=== PATIENT | male | born 1980 | race Caucasian/White ===

== ENCOUNTER 2023-10-09 08:54 | Outpatient (CLI) | payer BC, SELFPAY ==
--- NOTE | 2023-10-31 00:16 | WPDHOMESLEEP ---
Sleep Study - Home Unattended Date of Study: 10/09/23 Ordering Provider: KAREEM Jarrell Interpreting Provider: Cesia Bradford MD Home Sleep Study Type: Watch PAT Height: 1.8 m Weight: 83.461 kg Body Mass Index: 25.7 Neck Circumference (inches): 15 [place]: 5 Reason for Sleep Study loud snoring Sleep History Hal Rust is a 43-year-old man with excessively loud snoring that disturbs his . He feels tired after an average night of sleep. He rarely awakens from sleep feeling short of breath. He frequently wakes at night with heartburn, belching or coughing.??He constantly snores and is always loud enough to disturb others. He frequently has trouble sleeping when he has a cold. He rarely wakes up gasping for breath during the night. He frequently has breathing problems at night. He frequently sweats excessively at night. He never notices his heart pounding or beating irregularly during the night. He rarely falls asleep during the day, however he does take naps. He rarely falls asleep involuntarily, never falls asleep while driving. He never experiences loss of muscle tone with strong emotion. He rarely has daytime difficulty at work due to excessive sleepiness. He rarely feels paralyzed on waking or falling asleep. He rarely experiences vivid dreams upon waking or falling asleep. He never feels afraid of going to sleep. He he occasionally has nightmares. He frequently remembers his dreams. He constantly has racing thoughts. He rarely feels sad or depressed. He occasionally has anxiety. He occasionally notices parts of his body jerking. He constantly kicks at night. He rarely has crawling or aching feelings in his legs. He rarely has any kind of leg pain at night. He does not have any morning jaw pain. He occasionally grinds his teeth during sleep. He occasionally is bothered by pain during the day. He rarely is awakened by pain at night. He occasionally wakes up feeling stiff in the morning. He rarely wakes up with sore achy muscles. He rarely wakes up with pain in the neck and spine. He has memory problems and he takes antacids regularly. He indicates that he drinks alcohol heavily. He has had no significant change in his weight during the last year. Normal bedtime is Around 9:00 p.m., sometimes falling asleep instantly and sometimes it may take a little longer. He wakes up maybe once at night, at most 2 or 3 times to go to the bathroom and then immediately goes back to bed. He is able to return to sleep within 2-5 minutes. He wakes in the morning between 4 and 4:30 a.m.. On weekends, his schedule is different, going to bed between midnight and 2:00 a.m.. On weekends he wakes around 10:00 a.m.. He estimates getting 8 hours of sleep normally. He takes naps only on days off. Sometimes, a short nap lasting 10-15 minutes may be refreshing. He is usually drowsy for 1/2 hour after waking. He feels better in the afternoon or evening compared to earlier in the day. Habits:??Tobacco: 1 pack per day Caffeine: 1 cup of large tea throughout the day. Alcohol: several per day, more on the weekends Recreational substances: a little THC in the evening PMFSH Past Medical History Medical History (Updated 10/31/23 @ 00:29 by Cesia Bradford MD) GERD (gastroesophageal reflux disease) Rhinitis Surgical History Surgical History (Updated 09/22/23 @ 13:42 by Jeronimo Hardy MA) H/O vasectomy History of tonsillectomy Social History Social History (Updated 10/31/23 @ 00:25 by Cesia Bradford MD) Smoking packs per day: 1 Smoking cigarettes per day: 20.0 Years smoked: 20 Smoking pack-years: 20.00 Smoking status: Current every day smoker Alcohol intake: current Living arrangements: with family Medications Home Medications Medication Instructions Recorded Confirmed Type No Home Medications 09/22/23 09/22/23 History Sleep Procedure The sleep study was completed usin
[2023-10-31 00:28] VITALS: BMI 25.7
== END 2023-10-10 07:30 | disposition home or self-care (01) ==
PROVIDERS: Visit Provider Physician Assistant
DX: G47.10 Hypersomnia, unspecified (principal); Z87.891 Personal history of nicotine dependence; G47.33 Obstructive sleep apnea (adult) (pediatric)
CPT/HCPCS: 95800

== ENCOUNTER 2024-09-13 02:16 | Day surgery (SDC) | payer BC, SELFPAY ==
[2024-09-02 14:37] VITALS: BMI 25.1
--- OUTSIDE RECORDS SUMMARY | 2024-09-13 02:19 | XMS_ITS | Clinical Summary ---
Author Organization [facility] Address [address] [place] [address] Care Team Providers Care Egg Gatherer Name Role Phone So Leonard NP Primary Care Provider Allergies No known active allergies Medications No known medications Active Problems Problem Noted Date Diagnosed Date Heartburn 11/29/2021 Surgical History Surgery Date Site/Laterality Comments WISDOM TOOTH EXTRACTION TONSILECTOMY, ADENOIDECTOMY, BILATERAL MYRINGOTOMY AND TUBES Family History Medical History Relation Name Comments Arthritis Father Arthritis Mother Hyperlipidemia Mother Relation Name Status Comments Father Mother Social History Tobacco Use Types Packs/Day Years Used Date Smoking Tobacco: Every Day Cigarettes Personal Safety Answer Date Recorded Getting School Help Needed Not on file 10/08 Sex and Gender Information Value Date Recorded Sex Assigned at Not on file 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 Gender Identity Not on file Sexual Orientation Not on file Obstetrics History Last Filed Vital Signs Vital Sign Reading Time Taken Comments Blood Pressure - - Pulse - - Temperature - - Respiratory Rate - - Oxygen Saturation - - Inhaled Oxygen Concentration - - Weight 83.9 kg (185 lb) 11/29/2021 9:26 AM CDT Height 177.8 cm (5' 10 ) 11/29/2021 9:26 AM CDT Body Mass Index 26.54 11/29/2021 9:26 AM CDT Plan of Treatment Health Maintenance Due Date Last Done Comments Depression Screening 1981 Hepatitis C Screening 1981 Pneumococcal vaccine <65 (1 of 2 - PCV) 1987 DTaP/Tdap/Td Vaccine (1 - Tdap) 1992 Varicella Vaccines (1 of 2 - 13+ 2-dose series) 1994 Hepatitis B Screening 1999 Regular Well Visit/Exam 18-64 1999 Influenza Vaccine (#1) 2024 HPV Vaccines Aged Out No longer eligi ble based on patient's age to complete this topic Insurance [employer] Care Teams Egg Gatherer Relationship Specialty Start Date End Date So Leonard NP [address] [place] [address] PCP - General Nurse Practitioner 11/08/21
--- OUTSIDE RECORDS SUMMARY | 2024-09-13 02:19 | XMS_ITS | Referral Summary ---
Author Organization [facility] Address [address] [place] [address] Care Team Providers Care Director Of Institutional Research Name Role Phone So Leonard NP Primary Care Provider [phone] Allergies No known active allergies Medications No known medications Active Problems Problem Noted Date Diagnosed Date Heartburn 11/29/2021 Social History Tobacco Use Types Packs/Day Years Used Date Smoking Tobacco: Every Day Cigarettes Personal Safety Answer Date Recorded Getting School Help Needed Not on file 10/08 Sex and Gender Information Value Date Recorded Sex Assigned at Not on file 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 Gender Identity Not on file Sexual Orientation Not on file Last Filed Vital Signs Vital Sign Reading Time Taken Comments Blood Pressure - - Pulse - - Temperature - - Respiratory Rate - - Oxygen Saturation - - Inhaled Oxygen Concentration - - Weight 83.9 kg (185 lb) 11/29/2021 9:26 AM CDT Height 177.8 cm (5' 10 ) 11/29/2021 9:26 AM CDT Body Mass Index 26.54 11/29/2021 9:26 AM CDT Plan of Treatment Not on file Insurance [employer] Care Teams Director Of Institutional Research Relationship Specialty Start Date End Date Horacio, So Ramos NP [address] [place] [address] PCP - General Nurse Practitioner 11/08/21
--- OUTSIDE RECORDS SUMMARY | 2024-09-13 02:19 | XMS_ITS | Clinical Summary ---
Author Organization [facility] Address [address] [address] Phone Care Team Providers Care Hand Cloth Cutter Name Role Phone Unavailable Primary Care Provider Unavailabl e Social History Tobacco Use Types Packs/Day Years Used Date Smoking Tobacco: Never Assessed Sex and Gender Information Value Date Recorded Sex Assigned at Not on file Legal Sex Male 12:06 AM CDT Gender Identity Not on file Sexual Orientation Not on file Plan of Treatment Health Maintenance Due Date Last Done Comments Hepatitis C Virus (HCV) Screening 1981 TdaP Immunization 1981 Hepatitis B Immunization (1 of 3 - 19+ 3-dose series) 2000 Influenza Immunization (#1) 2024 SARS-COV-2 Immunization ( - 2023- season) 2024 Respiratory Syncytial Virus (RSV) Immunization (Adult) (1 - 1-dose 75+ series) 2056 Meningococcal Immunization (ACWY) Aged Out No longer eligible based on patient's age to complete this topic Pneumococcal Immunization Combined Aged Out No longer eligible based on patient's age to complete this topic Rotavirus Immunization Aged Out No lo nger eligible based on patient's age to complete this topic
--- OUTSIDE RECORDS SUMMARY | 2024-09-13 02:19 | XMS_ITS | Data Portability ---
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 15:37:36 Date Recorded Respiratory rate Provider Name a nd Address Organization Details Last Updated DateTime 03/12/2024 16 /min Joanne FalconGARO [place] [facility] 03/12/2024 15:37:39 Date Recorded Body temperature Provider Name a nd Address Organization Details Last Updated DateTime 03/12/2024 97.5 [degF] JoanneGARO [place] - [facility] 03/12/2024 15:42:26 Date Recorded Heart rate Provider Name an d Address Organization Details Last Updated DateTime 03/12/2024 98 /min Joanne FinnGARO [place] - [facility] 2023 15:42:35 Date Recorded Systolic blood pressure Diastolic blood pressure Provider Name and Address Organization Details Last Updated DateTime 01/29/2021 140 mm[Hg] 80 mm[Hg] Aiden Wilkins [place] [facility] 01/29/2021 15:20:44 Date Recorded Systolic blood pressure Diastolic blood pressure Provider Name and Address Organization Details Last Updated DateTime 01/29/2021 132 mm[Hg] 78 mm[Hg] So Garcia APN, FNP-C Attn: Accounting,[address] [facility], [place], [address], [place] 01/29/2021 15:40:34 Date Recorded Systolic blood pressure Diastolic blood pressure Provider Name and Address Organization Details Last Updated DateTime 09/22/2022 136 mm[Hg] 90 mm[Hg] Joanne Finn [facility] 04/2023 10:30:38 Date Recorded Systolic blood pressure Diastolic blood pressure Provider Name and Address Organization Details Last Updated DateTime 10/25/2022 130 mm[Hg] 90 mm[Hg] Joanne Finn [place] - [facility] 10/12 15:47:21 Date Recorded Systolic blood pressure Diastolic blood pressure Provider Name and Address Organization Details Last Updated DateTime 03/12/2024 164 mm[Hg] 98 mm[Hg] Joanne Finn [facility] - [facility] 03/12/2024 15:42:32 Date Recorded Systolic blood pressure Diastolic blood pressure Provider Name and Address Organization Details Last Updated DateTime 03/12/2024 142 mm[Hg] 88 mm[Hg] So Garcia APN, FNP-C Attn: Accounting[address] [place], [address], [facility] 03/12/2024 16:03:13 Social History Question Answer Notes LastModified by Organization Details LastModified Time Tobacco Smoking Status Current Every Day Smoker Heidi graham, [facility] 10/17/2016 14:03:08 Do You Have An Advance Directive? No Information not available 12/19/2018 What Is Your Level Of Alcohol Consumption? Heavy Couple Drinks A Night Information not available 03/12/2024 Are You Blind Or Do You Have Difficulty Seeing? No Information not available 01/29/2021 What Is Your Level Of Caffeine Consumption? Moderate Tea, Cinnamin Water Information not available 10/25/2022 How Much Tobacco Do You Chew? None Information not available 10/17/2016 In The 14 Days Before Symptom Onset, Have You Had Close Contact With A Laboratory-confi rmed COVID-19 While That Case Was Ill? No Information not available 07/28/2020 In The 14 Days Before Symptom Onset, Have You Had Close Contact With A Person Who Is Under Investigation For COVID-19 While That Person Was Ill? No Information not available 07/28/2020 Have You Been To An Area Known To Be High Risk For COVID-19? No Information not available 07/28/2020 Are You Currently Employed? Yes Information not available 01/29/2021 Are You Deaf Or Do You Have Serious Difficulty Hearing? No Information not available 01/29/2021 What Type Of Diet Are You Following? REGULAR Information not available 10/17/2016 Which Illicit Or Recreational Drugs Have You Used? None Information not available 10/17/2016 Do You Or Have You Ever Used E-cigarettes Or Vape? Never Used Electronic Cigarettes Information not available 07/28/2020 Education 12 Some College Information not available 12/19/2018 What Is Your Occupation? [employer] Information not available 03/12/2024 Are There Any Guns Present In Your Home? Yes Information not available 12/19/2018 Hard Of Hearing Or Deaf In One Or Both Ears? No Information not available 10/17/2016 Legally Blind In One Or Both Eyes? No Information not available 10/17/2016 Marital Status Informatio n not available 12/19/2018 What Was The Date Of Your Most Recent Tobacco Screening? 03/12/2024 Information not available 03/12/2024 How Many Children Do You Have? 2 Information not available 01/29/2021 What Is Your Relationship Status? Information not available 01/29/2021 Do You Use Your Seat Belt Or Car Seat Routinely? No Information not available 01/29/2021 Seat Belts Used Routinely Yes Information not available 12/19/2018 Smoke Alarm In Home Yes Information not available 12/19/2018 Do You Have Smoke And Carbon Monoxide Detectors In Your Home? Yes Information not available 01/29/2021 At What Age Did You Start Smoking Tobacco? 16 Information not available 10/17/2016 Are You Passively Exposed To Smoke? Yes Information not available 01/29/2021 Do You Or Have You Ever Used Smokeless Tobacco? Never Used Smokeless Tobacco Information not available 07/28/2020 How Much Tobacco Do You Smoke? 0.5 PPD Information not available 07/28/2020 General Stress Level Medium Information not available 05/10/2017 Do You Feel Stressed (tense, Restless, Nervous, Or Anxious, Or Unable To Sleep At Night)? [id number] Information not available 01/29/2021 Do You Use Any Illicit Or Recreational Drugs? Yes Occassional Marjiuanna [email or web address] Information not available 09/22/2022 Do You Use Sunscreen Routinely? No Information not available 12/19/2018 Has Tobacco Cessation Counseling Been Provided? Yes [email or web address] Information not available 10/25/2022 On What Date Was Tobacco Cessation Counseling Provided? 03/12/2024 Information not available 03/12/2024 How Many Years Have You Smoked Tobacco? 27 03/12/24 Information not available 03/12/2024 Do You Or Have You Ever Used Any Other Forms Of Tobacco Or Nicotine? No Information not available 01/29/2021 Sex: Male Functional Status Question Answer Note LastModified by Organizat ion Details LastModified Time Are you able to care for yourself? Yes Information not available 01/29/2021 What is your exercise level? Occasional Information not available 09/22/2022 Mental Status None recorded. Family History Relationship Description Onset Age of this Age Resolved Age Notes LastModified by Organization Details LastModified Time Brother Attention deficit hyperactivit y disorder Not available 10/17 14:02:50 Brother Hypertensive disorder Not available 2016 14:03:01 Mother Hypertensive disorder Not available 2016 14:03:01 Medical History Condition Response Coronary Artery Disease N Other N High Blood Pressure N Atrial Fibrillation N Thyroid Problems N Kidney or Bladder Problems N GI Problems N Depression N COPD N Blood Clots N Skin Problems N Anemia N Heart Attack (ME) N Diabetes N Anxiety Disorder N Muscle, Joint, or Bone Problems N Seizures/Epilepsy N Acid Reflux (GERD) N Cancer N Stroke N Asthma N Allergies N High Cholesterol N Hepatitis N Liver Disease N Headaches N Osteoporosis N Heart Failure N Past Encounters Encounter ID Performer Location Encounter Start Date Encounter Closed Date Diagnosis/Indication Diagnosis SNOMED-CT Code Diagnosis ICD10 Code Diagnosis Note [id number] So Garcia APN, FNP-C [facility] (Adult Med) [address] [place] [address] 10/17/2016 13:53:57 10/17/2016 15:53:26 Screening for disorder 496901960 Z13.9 Adult [facility] th examination 810338205 Z00.00 well exam and lab work to be done yearly, healthy diet advised Tobacco de pendence syndrome 61538664 F17.290 Smoking cessation encouraged . Bilateral wrist pain 404 6834888 9901015 M25.531 M25.532 OTC aleve or ibuprofen or tylenol as needed, Cyst of scalp 889239241 L72.9 derm referral [id number] So Garcia APN, FNP-C [facility] (Adult Med) [address] [place] [address] 10/24/2016 16:33:51 10/25/2016 09:24:45 Bilateral wrist pain 8589269191 1849242 M25.531 M25.532 OTC aleve or ibuprofen or tylenol as needed, Tobacco de pendence syndrome 75729039 F17.290 Smoking cessation encouraged . Cyst of scalp 317178136 L72.9 derm referral made, f/u with specialist , no c/o pain or drainage [id number] [facility] (Adult Med) [address] [place] [address] 02/16/2017 08:37:41 02/16/2017 15:25:04 Partial thickness burn of hand 28031995 T23.202A 1st to 2nd degree burn w/ blistering causing increased pain. Pt given Motrin 2 tabs prior to procedure. He can continue PRN Tylenol #3 and ibuprofen for pain at home. Cont. silvadene BID until blisters healed. No infection noted, but abx given to prevent infection since he works with his hands in a [employer]. Keep hand covered. f/u with PCP in one week to monitor healing. [id number] So Garcia APN, FNP-C [facility] (Adult Med) [address] [place] [address] 02/22/2017 16:08:17 02/28/2017 10:06:37 Partial thickness burn of hand 90881071 T23.202A 1st to 2nd degree burn w/ blistering ; abx given to prevent infection nad has a few days left.-no s/s infection, cont silvadene until finished with PO abx then may switch to mupirocin until wound healed. Keep blisters clean and covered, especially while at work. RTO if any fever or odor or redness. [id number] So Garcia APN, FNP-C [facility] (Adult [facility]) [address] [place] [address] 05/10/2017 16:17:11 05/11/2017 14:19:06 Increased frequency of urination 691288151 R35.0 urine dip wnl, send for c/s and await results for plan, also ordered psa. consider urology referral. possible bph Constipation 60865460 K5 9.00 start 17 g miralax qd until stool soft and formed; increase fiber and water intake during the day, decrease in evening Excessive thirst 2318841 7 R63.1 cont to drink 6-8 bottles a day, may add sports drink when hot outside/in side warehouse. Venereal d isease screening 559455598 Z11.3 pt requests lab work. [id number] So Garcia APN, FNP-C [facility] (Adult Med) [address] [place] [address] 05/17/2017 16:25:45 05/17/2017 17:58:41 Increased frequency of urination 908963053 R35.0 Pt declined referral to urology at this time. [id number] So Garcia APN, FNP-C [facility] (Adult Med) [address] [place] [address] 11/20/2017 15:35:52 11/21/2017 08:32:14 Tobacco dependence syndrome 72020047 F17.290 Smoking cessation encouraged . Adult [facility] th examination 724102729 Z00.00 well exam and lab work to be done yearly, healthy diet advised Body mass index 25-29 - overweight 444740608 Z68.25 bmi 25.2 Exposure t o sexually transmissible disorder 737510187 Z20.2 pt requests lab work. was exposed recently, no symptoms Anxiety 89197877 F41.9 possibly being willing to start medication , smoking MJ daily. Lexapro handout provided from [facility] Cyst of scalp 666922360 L72.9 derm referral made, f/u with specialist , no c/o pain or drainage [id number] So Garcia APN, EM[facility]ates (Adult Med) [address] [place] [address] 05/22/2018 16:17:43 05/22/2018 17:35:37 Body mass index 25-29 - overweight 442950442 Z68.25 bmi 25.2 Anxiety 13868423 F41.9 possibly willing to start medication , smoking MJ daily but less; Tobacco de pendence syndrome 64412225 F17.290 Smoking cessation encouraged . Exposure t o sexually transmissible disorder 671114088 Z20.2 pt requests lab work. was exposed recently, no symptoms Cyst of scalp 871045239 L72.9 derm referral made, f/u with specialist , no c/o pain or drainage Prehypertension 86758493 9 R03.0 low salt diet advised Herpes simplex 17812155 B00.9 valtrex and Denavir requested for HSV outbreaks [id number] So Garcia APN, [facility] (Adult Med) [address] [place] [address] 09/18/2018 09:03:41 09/19/2018 09:22:46 Influenza-like symptoms 833146348 R68.89 rapid flu negative, dwp keeping hydrated, RTO if symptoms worsen Viral gastroenteritis 11 5393070 A08.4 Increase clear fluids. BRAT (bananas, rice, applesauce , toast) diet. If pain increases or if fever, go to ER. May need to f/u with GI if persists mcc. Keep log of foods/symp toms. Acute otitis media 34572 03 H65.02 left TM's with erythema and purulent middle ear fluid, start amoxicilli n 500 mg capsule, take 1 three times a day for 7 days, may increase probiotics in between times. Try foods such as yogurt and naturally fermented veggies and drinks like kefir and kombucha. [id number] So Garcia APN, FNP-C [facility] (Adult [facility]) [address] [place] [address] 12/19/2018 14:06:06 12/20/2018 08:56:07 Pain in elbow 14369893 M25.522 dwp trauma with delayed healing? possible soft tissue injury, firm mass palpated, will send for xr and possibly US, may still need ortho referral, dwp NSAID use Elevated blood-pressure reading without diagnosis of hypertension 880478259 R03.0 BP in hypertensi ve range, dwp risk, reducing salt and increasing exercise Tobacco user 594658853 Z 72.0 Smoking cessation encouraged . [id number] So Garcia APN, FNP-C [facility] (Adult Med) [address] [place] [address] 07/28/2020 08:35:43 07/29/2020 04:28:28 Prehypertension 395760564 R03.0 low salt diet advised Anxiety 21394605 F41.9 no meds at this time, smoking MJ daily but less; Tobacco de pendence syndrome 80607069 F17.290 Smoking cessation encouraged . Herpes simplex 77406274 B00.9 valtrex requested for HSV outbreaksD enavir also used in past [id number] So Garcai APN, FNP-C [facility] (Adult [facility]) [address] [address] 01/29/2021 14:50:09 02/02/2021 09:29:33 Anxiety 25150339 F41.9 possibly willing to start medication , smoking MJ daily but less; Tobacco de pendence syndrome 53958577 F17.290 Smoking cessation encouraged . Prehypertension 21071302 9 R03.0 low salt diet advised Body mass index 25-29 - overweight 714899730 Z68.25 bmi 25.2 Exposure t o sexually transmissible disorder 731473937 Z20.2 pt requests lab work. was exposed recently, no symptoms Herpes simplex 88307332 B00.9 valtrex and Denavir requested for HSV outbreaks Adult [facility] th examination 676327889 Z00.01 well exam and lab work to be done yearly, healthy diet advised Vasectomy requested 9 08381 Z30.2 [id number] So Garcia APN, FNP-C [facility] (Adult Med) [address] [place] [address] 09/22/2022 10:19:25 09/26/2022 10:44:16 Injury of finger 94997080 S69.92XA left middle finger, possible fx, pt declines xray, will splint in office Elevated blood-pressure reading without diagnosis of hypertension 968099310 R03.0 BP in pre-hypert ensive range, dwp risk, reducing salt and increasing exercise [id number] So Garcia APN, FNP-C [facility] (Adult [facility]) [address] [place] [address] 10/25/2022 15:33:00 11/01/2022 13:56:03 Adult health examination 485544565 Z00.01 well exam and lab work to be done yearly, healthy diet advised Body mass index 25-29 - overweight 037527396 Z68.25 bmi 25.1 Tobacco de pendence syndrome 13179806 F17.290 Smoking cessation encouraged . Anxiety 31099734 F41.9 possibly willing to start medication , smoking MJ daily but less; Prehypertension 06219895 9 R03.0 low salt diet advised Exposure t o sexually transmissible disorder 098106732 Z20.2 pt requests lab work. was exposed recently, no symptoms Herpes simplex 78571937 B00.9 valtrex and Denavir requested for HSV outbreaks, ok to call for refill [id number] So Garcia APN, FNP-C [facility] ([facility]ult [facility]) [address] [place] [address] 03/12/2024 15:29:38 03/15/2024 11:56:00 Adult health examination 028698104 Z00.01 well exam and lab work to be done yearly, healthy diet advised Tobacco de pendence syndrome 55482832 F17.290 Smoking cessation encouraged . Herpes simplex 22950955 B00.9 valtrex and Denavir requested for HSV outbreaks, ok to call for refill Body mass index 25-29 - overweight 545225778 Z68.25 bmi 25.4 Exposure t o sexually transmissible disorder 050954754 Z20.2 pt requests lab work. was not exposed recently, no symptomsco nsent discussed Prehypertension 99162746 9 R03.0 BP in pre-hypert ensive range, dwp risk, reducing salt and increasing exercise Hemorrhoids 81376371 K64 .9 has tried otc options, minimally helping, pt plans to see rectal surgeon after the end of the year when he has more PTOdoes not need referral, just letting us know Positive s creening for depression on PHQ-9 (Patient Health Questionnaire 9) 9252562904 09600 Z13.31 depression screening positive-r epeat at followuppt states he just doesn't like having to be an adult and have a job and responsibi lities, looking forward to his upcoming vacation, does not want med or referrals Health Concerns Section Related Observation LastModified by Organization Detai ls LastModified Time None Recorded Concern Status LastModified by Organization Details LastModified Time None Recorded Advance Directives Directive N: Payers Encounter Date Sequence Insurance Name Policy Number Policy Obrien Covered Member ID Obrien Member ID Guarantor Name 07/28/2020 1 [facility] [id number] Hal Rust [id number] Hal Rust 01/29/2021 1 [facility] [id number] Hal Rust [id number] Hal Rust 09/22/2022 1 [employer] [id number] Hal Rust [id number] Hal Rust 10/25/2022 1 [place] [id number] Hal Rust [id number] Hal Rust 03/12/2024 1 [place] [id number] Hal Rust [id number] Hal Rust Notes Date Note Type Note Provider Name and Address Organization Details Recorded Time 07/28/2020 text/html 07/28/20: no new symptoms, needing follow up; does not want labs at this time; no new symptoms; just needs refill of medication for herpes outbreaks 05/22/18: no symptoms, just here for f/u/preventative visit; would like std screening, exposed, still would like new derm to have cyst removed from forehead; coping better with anxiety and is smoking MJ daily to cope but is only smoking 1-2 times a day 11/20/17: no symptoms, just here for f/u/preventative visit; would like std screening, was exposed recently, still would like new derm to go to; also has increased anxiety and is smoking MJ daily to cope, would like to consider medication because he is considering a new job but is not ready yet. 05/17/17: still feeling symptoms with frequent urination, constipation better; now has shoulder pain in right side when he turns his neck and if he coughs too hard but can't recreate the pain today;Denies fever, chest pain, SOB, n/v/d, dizziness or headaches.05/10/17: Having constipation in the last two weeks; not regular BM, used to go twice a day but has not had a good movement since. Taking Colace. No blood in stool, no n/v/d. Drinking 6-8 water bottles a day. Urinating a lot and feels like he still isn't drinking enough most days. Also drinks a large amount of etoh on weekends and thinks that maybe that is the issue.States he has no discharge and no other issues related to his manhood but also requests an std check, declined hiv screening. So Garcia APN, SECURITIES TELLER-C Attn: Accounting[address] [place], [address], [facility] 07/28/2020 11:24:50 01/29/2021 text/html 01/29/21: no symptoms, just here for f/u/preventative visit; would like std screening, exposed, coping better with anxiety and is smoking MJ daily to cope but is only smoking 1-2 times a day 05/22/18: no symptoms, just here for f/u/preventative visit; would like std screening, exposed, still would like new derm to have cyst removed from forehead; coping better with anxiety and is smoking MJ daily to cope but is only smoking 1-2 times a day 11/20/17: no symptoms, just here for f/u/preventative visit; would like std screening, was exposed recently, still would like new derm to go to; also has increased anxiety and is smoking MJ daily to cope, would like to consider medication because he is considering a new job but is not ready yet. 05/17/17: still feeling symptoms with frequent urination, constipation better; now has shoulder pain in right side when he turns his neck and if he coughs too hard but can't recreate the pain today;Denies fever, chest pain, SOB, n/v/d, dizziness or headaches.05/10/17: Having constipation in the last two weeks; not regular BM, used to go twice a day but has not had a good movement since. Taking Colace. No blood in stool, no n/v/d. Drinking 6-8 water bottles a day. Urinating a lot and feels like he still isn't drinking enough most days. Also drinks a large amount of etoh on weekends and thinks that maybe that is the issue.States he has no discharge and no other issues related to his manhood but also requests an std check, declined hiv screening. So Garcia APN, FNP-C Attn: Accounting[address] [place], [address], [facility] 01/29/2021 15:55:00 09/22/2022 text/html yesterday hit hi s left middle finger pain and swollen. smashed it cutting smalls. taking tylenol; RICE and painful to move So Garcia APN, FNP-C Attn: Accounting[address] [place], [address], [facility] 09/22/2022 10:44:36 10/25/2022 text/html no symptoms, jus t here for f/u/preventative visit and std screening, not recently exposed but would like labs with any future lab draw did get vasectomy done, did not go back for sperm count testing So Garcia APN, FNP-C Attn: [address] [place], [address], [facility] 10/25/2022 17:51:49 03/12/2024 text/html no symptoms, jus t here for f/u/preventative visit and std screening, not recently exposed but would like labs with any future lab draw pt c/o hemorrhoids- tried Prep H but they keep coming back So Garcia APN, SECURITIES TELLER-C Attn: [address]ing[address] [facility], [place], [address], [place] [facility] 03/12/2024 16:05:44
[2024-09-13 11:56] VITALS: BP 163/99; PULSE 92; RESP 20; TEMP 36.6; O2SAT 100
[2024-09-13] MEDS: LACTATED RINGERS 1,000 ML 150 ML IV CONT (12:05)
--- NOTE | 2024-09-13 12:09 | P.HP_ITS ---
H&P: HPI History of Present Illness Date/Time: 09/13/24 12:09 Chief Complaint: Rectal bleed Narrative: the patient was in his usual state of health until May and June of 2024 when he had almost daily episodes of rectal bleeding. This is not associated with abdominal pain, unintentional weight loss, tenesmus or urgency. He has not been experiencing more bleeding episodes since June. He is here for colonoscopy. Review of Systems Review of Systems: All systems reviewed & are unremarkable except as noted in HPI and below PMFSH Past Medical History Medical History Anxiety GERD (gastroesophageal reflux disease) Rhinitis Surgical History Surgical History H/O vasectomy History of tonsillectomy Social History Social History Smoking packs per day: 1 Smoking cigarettes per day: 20.0 Years smoked: 25 Smoking pack-years: 25.00 Smoking status: Current every day smoker Tobacco type: cigarettes Alcohol intake: current Alcohol use details: 2-6 a night, 30 a weekend on average Substance use: current Substance use type: marijuana Other substance usage details: smokes weed in the evening daily Living arrangements: with family Spiritual care concerns: No Meds Home Medications and Allergies Home Medications ?Medication ?Instructions ?Recorded ?Confirmed ?Type famotidine 20 mg tablet (Acid 20 mg PO DAILY GERD 09/02/24 09/13/24 History Controller) Allergies Allergy/AdvReac Type Severity Reaction Status Date / Time Penicillins Allergy Rash Verified 09/13/24 11:54 Vital Signs Vital Signs - 24 hr 09/13/24 11:56 Temperature 97.9 F Pulse Rate 92 Respiratory Rate 20 Blood Pressure 163/99 H Pulse Oximetry 100 Oxygen Delivery Room Air Exam Const: General: cooperative and healthy appearing Resp: Effort & Inspection: normal respiratory effort and able to speak in complete sentences Auscultation: clear to auscultation bilaterally Cardio: Rate: regular rate Rhythm: regular rhythm GI: Inspection: normal to inspection GI Palp: No No hepatosplenomegaly present Auscultation: normal bowel sounds Rectal Exam: deferred Skin: General skin exam: normal color Psych: Appearance: grossly normal Mental Status: mental status grossly n ormal Assessment and Plan Assessment and plan (1) Bright red rectal bleeding: Code(s): K62.5 - Hemorrhage of anus and rectum Status: Acute Assessment and Plan: The patient is deemed a good candidate for the procedure. Consent signed. Will proceed.
--- NOTE | 2024-09-13 12:12 | P.PNAN_ITS ---
Anes - Initial Pre Proc Eval Procedure: Operation Date: 09/13/24 13:00 Proposed Procedures p Colonoscopy - Tod Renae MD Date/Time: 09/13/24 12:12 Surgeon: Tod Renae MD Pre Op Diagnosis: Hemorrhage of anus and rectum Patient Data Age: 44 Gender: M Height: 1.83 m Weight: 82.9 kg Last Vital Signs Temp 36.6 C 09/13/24 11:56 Pulse 92 09/13/24 11:56 Resp 20 09/13/24 11:56 BP 163/99 H 09/13/24 11:56 Pulse Ox 100 09/13/24 11:56 O2 Del Method Room Air 09/13/24 11:56 Allergies Allergy/AdvReac Type Severity Reaction Status Date / Time Penicillins Allergy Rash Verified 09/13/24 11:54 Home Medications ?Medication ?Instructions ?Recorded ?Confirmed ?Type famotidine 20 mg tablet (Acid 20 mg PO DAILY GERD 09/02/24 09/13/24 History Controller) Patient hx anesthesia problems: none Family hx anesthesia problems: none Results Review: All pre-operative results and documents have been reviewed as part of the pre- operative evaluation. [facility] Past Medical History Medical History Anxiety Rhinitis GERD (gastroesophageal reflux disease) Surgical History Surgical History H/O vasectomy History of tonsillectomy Social History Social History Smoking packs per day: 1 Smoking cigarettes per day: 20.0 Years smoked: 25 Smoking pack-years: 25.00 Smoking status: Current every day smoker Tobacco type: cigarettes Alcohol intake: current Alcohol use details: 2-6 a night, 30 a weekend on average Substance use: current Substance use type: marijuana Other substance usage details: smokes weed in the evening daily Living arrangements: with family Spiritual care concerns: No Anes - Eval Final PreProcedure Day of Procedure 09/13/24 12:12 Patient weight: normal Heart: regular rate and rhythm Lungs: decreased breath sounds Airway: Mallampati scale class II Neurological: alert and oriented Last oral intake: >/= 8 hours ASA classification: III Emergent: no Anesthetic plan: proceed Anesthesia type and monitoring: general GIVS and standard monitoring Results Review: All pre-operative results and documents have been reviewed as part of the pre- operative evaluation. Informed Consent: The patient's anesthetic plan and its attendant risks and benefits were discussed with the patient/family/POA. Questions were solicited and answers pr ovided to the satisfaction of the patient/family/POA.
[2024-09-13 13:05] VITALS: BP 133/95; PULSE 85; RESP 19; O2SAT 100
[2024-09-13 13:15] VITALS: BP 137/99; PULSE 79; RESP 13; O2SAT 100
[2024-09-13 13:25] VITALS: BP 149/102; PULSE 75; RESP 13; O2SAT 100
== END 2024-09-13 13:42 | disposition home or self-care (01) ==
PROVIDERS: PCP Nurse Practitioner Family; Visit Provider Internal Medicine Gastroenterology
PROC: 0DJD8ZZ Inspection of Lower Intestinal Tract, Via Natural or Artificial Opening Endoscopic (ICD-10-PCS; CPT 45378; principal; 2024-09-13 13:00)
DX: K63.5 Polyp of colon (principal); K51.40 Inflammatory polyps of colon without complications; K64.8 Other hemorrhoids; K21.9 Gastro-esophageal reflux disease without esophagitis; F41.9 Anxiety disorder, unspecified; F17.210 Nicotine dependence, cigarettes, uncomplicated; F12.90 Cannabis use, unspecified, uncomplicated; Z98.890 Other specified postprocedural states
CPT/HCPCS: 45378; 88305; J2003; J2704; J7120

== ENCOUNTER 2024-09-16 14:39 | Observation (INO) | payer BC, SELFPAY ==
[2024-09-16] VITALS (40 sets, daily range): BP systolic 84–172; BP diastolic 62–114; PULSE 90–141; RESP 9–21; TEMP 36.6–37.1; O2SAT 98–100; BMI 26.5
--- NOTE | ~2024-09-16 | CT_ITS ---
EXAMINATION: CT abdomen pelvis w con DATE: 09/16/2024 18:24 INDICATION: nonlocalized abdominal pain TECHNIQUE: Computed tomography (CT) of the abdomen and pelvis was performed with 100 mL Omnipaque-350 intravenous contrast. Automated exposure control and iterative reconstruction technique were employe d. The dose-length product was 516.26 mGy-cm. COMPARISON: None. FINDINGS: Lower thorax: Unremarkable Liver: Normal. Biliary/Gallbladder: Gallbladder is normal. No bile duct dilation. Pancreas: No mass or duct dilation. Spleen: Normal. Adrenals:No mass. Kidneys: No suspicious mass, obstructing stone, or hydronephrosis. GI tract: No small or large bowel dilation. Mostly fluid-filled colon. Normal appendix. Mesentery/Peritoneum: No ascites, mass, or free air. Enlarged central lymph nodes, with surrounding f at halos. Retroperitoneum: No mass. Pelvis: Mostly empty urinary bladder. Normal prostate. Soft Tissues: Small uncomplicated umbilical fat-containing right inguinal hernias. Bones: No acute osseous finding. IMPRESSION: Mesenteric panniculitis. Mostly fluid-filled colon, as can be seen with diarrheal illness. Reviewed, dictated and finalized at location K. [facility] PATHOLOGIST
--- NOTE | 2024-09-16 15:37 | ECG_ITS ---
Test Date: 2024-09-16 15:37:43 Measurements Intervals [place] Rate: 131 P: 62 [place]: 149 QRS: 25 QRSD: 85 T: 69 QT: 281 QTc: 416 Interpretive Statements SINUS TACHYCARDIA DELAYED PRECORDIAL R/S TRANSITION ABNORMAL ECG No previous ECG available for comparison Electronically Signed On 09-16-2024 19:16:12 BACK UP SCAN COORDINATOR by Mohsen Resendiz D.O.
[2024-09-16] MEDS: SODIUM CHLORIDE 0.9% IV 1,000 ML 999 ML IV CONT (15:42)
--- NOTE | 2024-09-16 15:48 | ED_ITS ---
HPI - GI Bleed General Chief complaint: GI Bleed Stated complaint: blood in stool Time Seen by Provider: 09/16/24 15:30 History of Present Illness HPI Narrative: Patient is a 44-year-old male who presents ER with rectal bleeding. Began this morning. He has had 5 bright red bloody stools that are large in quantity. Had a colonoscopy 3 days ago. He had a large polyp retrieved with hot snare in the ascending colon. He is not on blood thinning medications. Patient reports he is sweaty and lightheaded. No syncope. He did contact his GI physician prior to coming to the ER. Related Data Home Medications ?Medication ?Instructions ?Recorded ?Confirmed ?Last Taken ?Type famotidine 20 mg tablet (Acid 20 mg PO DAILY GERD 09/02/24 09/16/24 09/12/24 History Controller) Allergies Allergy/AdvReac Type Severity Reaction Status Date / Time Penicillins Allergy Rash Verified 09/16/24 16:10 Review of Systems 2 Review of Systems: All systems reviewed & are unremarkable except as noted in HPI and below Constitutional: Constitutional: Reports no additional constitutional complaints Cardiovascular: Cardiovascular: Reports no additional cardiovascular complaints Respiratory: Respiratory: Reports no additional respiratory complaints Musculoskeletal: Musculoskeletal: Reports no additional musculoskeletal complaints Neurologic: Reports system reviewed and no additional complaints, except as documented PMFSH Past Medical History Medical History Anxiety Rhinitis GERD (gastroesophageal reflux disease) Surgical History Surgical History H/O vasectomy History of tonsillectomy Social History Social History Smoking packs per day: 1 Smoking cigarettes per day: 20.0 Years smoked: 25 Smoking pack-years: 25.00 Smoking status: Current every day smoker Tobacco type: cigarettes Alcohol intake: current Alcohol use details: 2-6 a night, 30 a weekend on average Substance use: current Substance use type: marijuana Other substance usage details: smokes weed in the evening daily Living arrangements: with family Spiritual care concerns: No Exam 2 Narrative: GENERAL: Anxious-appearing, well-nourished, and in no acute distress. HEAD: Normocephalic, atraumatic. ENT: Mucous membranes moist. CHEST: Clear to auscultation. No respiratory distress. HEART: Tachycardic regular. Normal peripheral pulses. ABDOMEN: Soft, nontender, nondistended. EXTREMITIES: Normal range of motion. No edema. SKIN: Warm, dry, no rash. NEURO: Alert and oriented x3. PSYCH: Normal mood and affect. Course Course Emergency Course: Discussed case with Dr. Renae. He has been at the patient's bedside to evaluate him. Patient has had additional bloody bowel movement here. No syncope. Hemoglobin stable but we will trend. Admit to hospitalist service. Vital Signs Vital signs: Vital Signs Temperature 98.8 F 09/16/24 15:25 Pulse Rate 141 H 09/16/24 15:25 Respiratory Rate 20 09/16/24 15:25 Blood Pressure 172/111 H 09/16/24 15:25 Pulse Oximetry 100 09/16/24 15:25 Temperature 98.8 F 09/16/24 15:25 Pulse Rate 141 H 09/16/24 15:25 Respiratory Rate 20 09/16/24 15:25 Blood Pressure 172/111 H 09/16/24 15:25 Pulse Oximetry 100 09/16/24 15:25 MDM - GI Bleed Lab Data 09/16/24 16:02 09/16/24 16:02 Labs: Lab Results 09/16/24 Range/Units 16:02 WBC 16.8 H (4.5-10.0) K/mm3 RBC 4.10 L (4.6-6.20) M/mm3 Hgb 13.5 L (14.0-18.0) g/dL Hct 41.4 L (42.0-52.0) % MCV 101.0 H (80-100) fl MCH 32.9 (26-34) pg MCHC 32.6 (32-36) g/dl RDW 13.2 (11.5-14.5) % Plt Count 234 (150-375) k/mm3 MPV 10.3 (7.4-10.4) fl Immature Gran % (Auto) 0.4 (0-0.5) % Neut % (Auto) 58.0 (45.5-73.1) % Lymph % (Auto) 31.5 (18.3-44.2) % [place] % (Auto) 7.7 (2.6-8.5) % Eos % (Auto) 1.6 (0-4.4) % Baso % (Auto) 0.8 (0.2-1.2) % Lymph # (Auto) 5.29 H (0.9-3.2) K/mm3 [place] # (Auto) 1.3 H (0.1-0.6) K/mm3 Eos # (Auto) 0.3 (0-0.3) K/mm3 Baso # (Auto) 0.1 (0.0-0.1) K/mm3 Abs Immat Gran (auto) 0.07 H (0.00-0.031) K/mm3 Absolute Neuts (auto) 9.7 H (1.3-6.7) K/mm3 Absolute Nucleated RBC 0.000 (0.0-0.012) K/mm3 Nucleated RBC % 0.0 (0.0-0.2) % PT 12.9 (11.1-14.7) Seconds INR 0.9 APTT 28.3 (22.3-36.8) Seconds Sodium 138 (137-145) mmol/L Potassium 3.8 (3.4-5.0) mmol/L Chloride 100 (98-107) mmol/L Carbon Dioxide 25 (22-30) mmol/L Anion Gap 13 H (4-12) mmol/L BUN 13 (9-20) mg/dL Creatinine 0.89 (0.7-1.3) mg/dL Estim Creat Clear Calc 103 ml/min Estimated GFR > 60 (59 - ) Glucose 102 (65-110) mg/dL Calcium 9.3 (8.4-10.2) mg/dL Total Bilirubin 0.5 (0.2-1.3) mg/dL AST 29 (17-59) U/L ALT 20 (6-50) U/L Alkaline Phosphatase 88 (38-126) U/L Total Protein 8.0 (6.3-8.2) g/dL Albumin 4.6 (3.5-5.1) g/dL Blood Type O Positive Antibody Screen Pending Discharge Plan Discharge Clinical Impression: Acute lower GI bleeding Patient Disposition: Still a Patient Condition: Stable Patient Language: [place] Prescriptions: No Action famotidine [Acid Controller] 20 mg tablet 20 mg PO DAILY Follow-up/Referrals: Leonard,So Jones APN [Primary Care Provider] -
[2024-09-16 16:20] LABS: Basophils Absolute Auto 0.1 K/mm3 (0.0-0.1); Basophils Percent Auto 0.8 % (0.2-1.2); Eosinophils Absolute Auto 0.3 K/mm3 (0-0.3); Eosinophils Percent Auto 1.6 % (0-4.4); Hematocrit 41.4 % (42.0-52.0); Hemoglobin 13.5 g/dL (14.0-18.0); Immature Granulocyte Absolute 0.07 K/mm3 (0.00-0.031); Immature Granulocyte Percent A 0.4 % (0-0.5); Lymphocytes Absolute Auto 5.29 K/mm3 (0.9-3.2); Lymphocytes Percent Auto 31.5 % (18.3-44.2); Mean Corpuscular HGB Conc 32.6 g/dl (32-36); Mean Corpuscular Hemoglobin 32.9 pg (26-34); Mean Platelet Volume 10.3 fl (7.4-10.4); Monocytes Absolute Auto 1.3 K/mm3 (0.1-0.6); Monocytes Percent Auto 7.7 % (2.6-8.5); Neutrophils Absolute Auto 9.7 K/mm3 (1.3-6.7); Platelet Count Result 234 k/mm3 (150-375); Red Cell Distribution Width 13.2 % (11.5-14.5); White Blood Count 16.8 K/mm3 (4.5-10.0)
[2024-09-16 16:33] LABS: Alanine Aminotransferase 20 U/L (6-50); Albumin Level 4.6 g/dL (3.5-5.1); Alkaline Phosphatase 88 U/L (38-126); Anion Gap 13 mmol/L (4-12); Aspartate Amino Transferase 29 U/L (17-59); Bilirubin,Total 0.5 mg/dL (0.2-1.3); Blood Urea Nitrogen 13 mg/dL (9-20); Calcium 9.3 mg/dL (8.4-10.2); Carbon Dioxide 25 mmol/L (22-30); Chloride 100 mmol/L (98-107); Estimated CRCL calculation 103 ml/min; Estimated Glomerular Filt Rate > 60; Glucose 102 mg/dL (65-110); Potassium 3.8 mmol/L (3.4-5.0); Sodium 138 mmol/L (137-145)
[2024-09-16 16:37] LABS: INR 0.9; Prothrombin Time 12.9 Seconds (11.1-14.7)
[2024-09-16 16:38] LABS: Partial Thromboplastin Time 28.3 Seconds (22.3-36.8)
--- OUTSIDE RECORDS SUMMARY | 2024-09-16 16:39 | XMS_ITS | Data Portability ---
Author Organization [facility] STEVELizz Goldman Address [address] [place] [address] Care Team Providers [employer] Utility Supervisor Name Role Phone GARCIA, SO Primary Care [...] RPR (rapid plasma reagin), serum 2020 021 [facility], [address] [place] [address], [facility] [address], [place], [address], 1 15:36:34 CT + NG RNA, PCR, unspecifie d specimen 2020 021 [facility], [address] [place] [address], [facility] [address], [place], [address], 1 15:36:34 hepatitis panel (A+B+C), acute, serum 2020 021 [facility], [address] [place] [address], [address], [place], [address], 1 15:36:33 HIV 1+2 AB + HIV 1 p24 Ag, qualitativ e immunoassa y, serum 2020 021 [facility], [address], [address], [place], [address], 1 15:36:34 TSH, ultra-sens itive, serum 2020 021 [facility], [address], [place], [address], 1 15:36:33 CMP, serum or plasma 2020 021 [facility], [address], [place], [address], 1 15:36:34 lipid panel, serum 2020 021 [facility], [address], [place], [address], 1 15:36:33 CBC 2020 021 [facility], [address], [place], [address], 1 15:36:33 RPR (rapid plasma reagin), serum 2022 023 [facility], [address], [place], [address], 3 16:02:27 CT + NG RNA, PCR, unspecifie d specimen 2022 023 [facility], [address], [place], [address], 3 16:02:28 hepatitis panel (A+B+C), acute, serum 2022 023 [facility], [address], [place], [address], 3 16:02:28 TSH, ultra-sens itive, serum 2022 023 [facility], [address], [place], [address], 3 16:05:23 CMP, serum or plasma 2022 023 [facility], [address], [place], [address], 3 16:05:24 lipid panel, serum 2022 023 [facility], [address], [place], [address], 3 16:05:23 CBC 2022 023 [facility], [address], [place], [address], 3 16:05:23 TSH, ultra-sens itive, serum 2023 024 [facility], [address], [place], [address], 4 03:08:53 CMP, serum or plasma 2023 024 CHARLENE Mendes, [address], [place], [address], 4 03:08:53 lipid panel, serum 2023 024 [facility], [address], [place], [address], 4 03:08:52 CBC 2023 024 [facility], [address], [place], [address], 4 03:08:56 HIV 1 + 2, meaningful use set 2023 024 CHARLENE MENDES, [address], [address], [place], [address], 4 03:08:56 RPR (rapid plasma reagin), serum 2023 024 [facility] MENDESRP, [address] [facility], [address], [place], [address], 4 03:08:55 CT + NG RNA, PCR, unspecifie d specimen 2023 024 CHARLENE MORSE, [address], [address], [place], [address], 4 03:08:51 Hepatitis C IgG Ab, qual, serum 2023 024 CHARLEN[facility] MENDES, [address] [facility] [address], [address], [place], [address], 4 03:08:51 hepatitis B surface Ab, qualitativ e, serum 2023 024 CHARLENE MENDES, [address] [facility] [facility] [address], [address], [place], [address], 4 03:08:54 Referral urologist referral 2020 021 CHARLENE Ragsdale, [address] [facility] [address], [place], [address], 1 10:58:58 Procedures None recorded. Surgeries None recorded. Imaging None recorded. Medication Orders Valtrex 1 gram tablet 2019 020 [email or web address] [id number], [address], [place], [place], [id number], 3 10:28:16 Valtrex 1 gram tablet 2020 021 [facility] #[id number], [address], [place], [id number], 3 10:28:16 Denavir 1 % topical cream 2020 021 [facility] #[id number], [address], [place], [id number], 3 10:28:09 valacyclov ir 1 gram tablet 2023 024 CHARLENE [facility] #63646, [address], [place], [id number], 4 16:01:30 Patient TargetsNo targets recorded. Patient Instructions Encounter Date Encounter Id Patient Instructions Last Modified By Organization Details Last Modified Time 07/28/2020 [id number] deciding about using medicines to quit smoking [...] care: none Not available 07/28/2020 11:23:22 01/29/2021 [id number] deciding about using medicines to quit smoking [...] care: none Not available 01/29/2021 15:35:49 09/22/2022 [id number] ? Rest- Rest your injured body part. [...] as planned Not available 09/22/2022 10:42:39 10/25/2022 [id number] deciding about using medicines to quit smoking [...] with provider Not available 10/25/2022 16:03:27 03/12/2024 [id number] deciding about using medicines to quit smoking [...] for Vasec hayley requested Referring Physician: So [facility], Encounter Date: 01/29/2021 Results Created Date Observation [...] ate HCV infec tion. Not Available [facility] ([facility]) [address] [facility], [place], [address], 03/14/2024 03:08:50 03/12/20 24 03/13/2024 HCV ANTIB ANNABELLE RFX TO QUANT PCR HCV Ab NON REACTI VE nonrea ctive Not Available [facility] ([facility]) [address] [place], [address], 03/14/2024 03:08:50 03/12/20 24 03/13/2024 CHLAM YDIA/ GC AMPLI FICAT ION chlamydia trachomatis, TANNER NEGATI VE negati ve Not Available [facility] ([facility]) [address] [facility], [place], [address], 03/14/2024 03:08:51 03/12/20 24 03/13/2024 CHLAM YDIA/ GC AMPLI FICAT ION neisseria gonorrhoeae, TANNER NEGATI VE negati ve Not Available [facility] ([facility]) [address] [place], [address], 03/14/2024 03:08:51 03/12/20 24 03/13/2024 LIPID PANEL cholesterol, total 214 mg/dL 100-19 9 above high normal Not Available [facility] ([facility]) [address] [place], [address], 03/14/2024 03:08:52 03/12/20 24 03/13/2024 LIPID PANEL triglyceride s 114 mg/dL 0-149 Not Available [facility] [address] [facility] [place], [address], 03/14/2024 03:08:52 03/12/20 24 03/13/2024 LIPID PANEL HDL cholesterol 57 mg/dL >39 Not Available [facility] [address] [facility] [place], [address], 03/14/2024 03:08:52 03/12/20 24 03/13/2024 LIPID PANEL VLDL cholesterol scooby 20 mg/dL 5-40 Not Available [facility]) [address] [facility] [place], [address], 03/14/2024 03:08:52 03/12/20 24 03/13/2024 LIPID PANEL LDL chol calc ([facility]) 137 mg/dL 0-99 above high normal Not Available [facility] ([facility]) [address] [place], [address], 03/14/2024 03:08:52 03/12/20 24 03/13/2024 COMP. METAB OLIC PANEL (14) glucose 82 mg/dL 70-99 Not Available [facility] ([facility]) [address] [facility] [place], [address], 03/14/2024 03:08:53 03/12/20 24 03/13/2024 COMP. METAB OLIC PANEL (14) BUN 9 mg/dL 6-24 Not Available [facility] ([facility]) [address] [facility] [place], [address], 03/14/2024 03:08:53 03/12/20 24 03/13/2024 COMP. METAB OLIC PANEL (14) creatinine 1.03 mg/dL 0.76-1 .27 Not Available [facility] ([facility]) [address] [place], [address], 03/14/2024 03:08:53 03/12/20 24 03/13/2024 COMP. METAB OLIC PANEL (14) eGFR 93 mL/mi n/1.7 3 >59 Not Available [facility] ([facility]) [address] [facility], [place], [address], 03/14/2024 03:08:53 03/12/20 24 03/13/2024 COMP. METAB OLIC PANEL (14) BUN/creatini ne ratio 9 9-20 Not Available [facility]) [address] [facility], [place], [address], 03/14/2024 03:08:53 03/12/20 24 03/13/2024 COMP. METAB OLIC PANEL (14) sodium 139 mmol/ L 134-14 4 Not Available [facility] ([facility]) [address] [facility], [place], [address], 03/14/2024 03:08:53 03/12/20 24 03/13/2024 COMP. METAB OLIC PANEL (14) potassium 3.8 mmol/ L 3.5-5. 2 Not Available [facility] ([facility]) [address] [facility], [place], [address], 03/14/2024 03:08:53 03/12/20 24 03/13/2024 COMP. METAB OLIC PANEL (14) chloride 98 mmol/ L 96-106 Not Available [facility] ([facility]) [address] [facility], [place], [address], 03/14/2024 03:08:53 03/12/20 24 03/13/2024 COMP. METAB OLIC PANEL (14) carbon dioxide, total 24 mmol/ L 20-29 Not Available [facility] ([facility]) [address] [facility], [place], [address], 03/14/2024 03:08:53 03/12/20 24 03/13/2024 COMP. METAB OLIC PANEL (14) calcium 9.8 mg/dL 8.7-10 .2 Not Available [facility] ([facility]) [address] [facility] [place], [address], 03/14/2024 03:08:53 03/12/20 24 03/13/2024 COMP. METAB OLIC PANEL (14) protein, total 7.5 g/dL 6.0-8. 5 Not Available [facility] [address] [facility] [place], [address], 03/14/2024 03:08:53 03/12/20 24 03/13/2024 COMP. METAB OLIC PANEL (14) albumin 4.7 g/dL 4.1-5. 1 Not Available [facility] [address] [facility] [place], [address], 03/14/2024 03:08:53 03/12/20 24 03/13/2024 COMP. METAB OLIC PANEL (14) globulin, total 2.8 g/dL 1.5-4. 5 Not Available [facility] [address] [facility] [place], [address], 03/14/2024 03:08:53 03/12/20 24 03/13/2024 COMP. METAB OLIC PANEL (14) bilirubin, total 0.4 mg/dL 0.0-1. 2 Not Available [facility] [address] [facility] [place], [address], 03/14/2024 03:08:53 03/12/20 24 03/13/2024 COMP. METAB OLIC PANEL (14) alkaline phosphatase 88 IU/L 44-121 Not Available [facility] [address] [facility] [place], [address], 03/14/2024 03:08:53 03/12/20 24 03/13/2024 COMP. METAB OLIC PANEL (14) AST (SGOT) 21 IU/L 0-40 Not Available [facility] ([facility]) [address] [facility], [place], [address], 03/14/2024 03:08:53 03/12/20 24 03/13/2024 COMP. METAB OLIC PANEL (14) ALT (SGPT) 20 IU/L 0-44 Not Available [facility] ([facility]) [address] [facility], [place], [address], 03/14/2024 03:08:53 03/12/20 24 03/13/2024 TSH RFX ON ABNOR MAL TO FREE T4 TSH 3.660 uIU/m L 0.450- 4.500 Not Available [facility] ([facility]) [address] [facility], [place], [address], 03/14/2024 03:08:53 03/12/20 24 03/13/2024 HEP B SURFA CE AB, QUAL hep B surface Ab, qual REACTI VE Non React cong: Incon siste nt with immun ity, less than 10 mIU/m L React cong: Consi stent with immun ity, great er than 9.9 mIU/m L Not Available [facility] ([facility]) [address] [facility], [place], [address], 03/14/2024 03:08:54 03/12/20 24 03/13/2024 RPR, RFX QN RPR/C ONFIR M TP RPR NON REACTI VE nonrea ctive Not Available [facility] ([facility]) [address] [facility], [place], [address], 03/14/2024 03:08:55 03/12/20 24 03/13/2024 CBC, PLATE LET, NO DIFFE RENTI AL WBC 11.9 x10e3 /uL 3.4-10 .8 above high normal Not Available [facility] ([facility]) [address] [place], [address], 03/14/2024 03:08:55 03/12/20 24 03/13/2024 CBC, PLATE LET, NO DIFFE RENTI AL RBC 4.91 x10e6 /uL 4.14-5 .80 Not Available [facility]) [address] [facility], [place], [address], 03/14/2024 03:08:55 03/12/20 24 03/13/2024 CBC, PLATE LET, NO DIFFE RENTI AL hemoglobin 15.6 g/dL 13.0-1 7.7 Not Available [facility]) [address] [facility], [place], [address], 03/14/2024 03:08:55 03/12/20 24 03/13/2024 CBC, PLATE LET, NO DIFFE RENTI AL hematocrit 47.9 % 37.5-5 1.0 Not Available [facility]) [address] [facility], [place], [address], 03/14/2024 03:08:55 03/12/20 24 03/13/2024 CBC, PLATE LET, NO DIFFE RENTI AL MCV 98 fL 79-97 above high normal Not Available [facility]) [address] [place], [address], 03/14/2024 03:08:55 03/12/20 24 03/13/2024 CBC, PLATE LET, NO DIFFE RENTI AL MCH 31.8 pg 26.6-3 3.0 Not Available [facility]) [address] [place], [address], 03/14/2024 03:08:55 03/12/20 24 03/13/2024 CBC, PLATE LET, NO DIFFE RENTI AL MCHC 32.6 g/dL 31.5-3 5.7 Not Available [facility]) [address] [facility], [place], [address], 03/14/2024 03:08:55 03/12/20 24 03/13/2024 CBC, PLATE LET, NO DIFFE RENTI AL RDW 12.2 % 11.6-1 5.4 Not Available [facility]) [address] [facility], [place], [address], 03/14/2024 03:08:55 03/12/20 24 03/13/2024 CBC, PLATE LET, NO DIFFE RENTI AL platelets 273 x10e3 /uL 150-45 0 Not Available [facility] ([facility]) [address] [facility], [place], [address], 03/14/2024 03:08:55 03/12/20 24 03/13/2024 HIV AB/P2 4 AG WITH REFLE X HIV Ab/P24 Ag screen NON REACTI VE nonrea ctive HIV-1 /HIV- 2 antib odies and HIV-1 p24 antig en were NOT detec alda. There is no labor atory evide nce of HIV infec tion. HIV Negat cong Not Available [facility] ([facility]) [address] [facility], [place], [address], 03/14/2024 03:08:56 Result Notes None recorded. Problems Name Problem SNOMED Code Status Onset Date Resolution Date Notes Provider Name and Address Organization Details Recorded Time Body mass index 25-29 - overweigh t 841360859 Active 2017 So Garcia APN, FNP-C Attn: Anthony arellano,[address] [facility], [place], [address], [facility] 8 16:25:57 Exposure to sexually transmiss ible disorder Active 2017 So Garcia APN, FNP-C Attn: Anthony arellano,[address] [facility], [place], [address], [facility] 8 16:29:31 Anxiety 03660482 Active 2017 So Garcia APN, FNP-C Attn: Anthony arellano,[address] [facility], [place], [address], [facility] 8 16:29:37 Prehypert ension 807092017 Active 2017 So Garcia APN, FNP-C Attn: Anthony eileen,[address] [place], [address], [facility] 8 16:54:13 Herpes simplex 71485767 Active 2020 So Garcia APN, FNP-C Attn: Anthony eileen,[address] [place], [address], [facility] 1 15:50:22 COVID-19 014883798 Active 2020 Priscilla Siu RN [facility], [facility] 1 12:06:38 Bilateral wrist pain 526599712977 14148 Active 2016 So Garcia APN, FNP-C Attn: Anthony arellano,[address] [place] [address], [address], [facility] 7 14:45:13 Tobacco dependenc e syndrome 96470233 Active 2016 So Garcia APN, FNP-C Attn: Anthony arellano,[address] [place] [address], [address], [facility] 7 17:42:07 Cyst of scalp 918365342 Active 2016 So Garcia APN, FNP-C Attn: Anthony arellano,[address] [place] [address], [address], [facility] 7 17:42:09 Partial thickness burn of hand 51193726 Completed 201607/28/2020 So Garcia APN, FNP-C Attn: Anthony arellano,[address] [place] [address], [address], [facility] 0 11:24:29 Increased frequency of urination 072604355 Completed 201607/28/2020 So Gracia APN, FNP-C Attn: Anthony arellano,[address] [facility], [place], [address], [facility] 0 11:24:26 Constipat ion 73131359 Active 2016 So Garcia APN, JOSH-C Attn: Anthony arellano,[address] [facility], [place], [address], [facility] 7 16:52:48 Problem Notes None recorded. Procedures Surgical History Date Name Laterality Status Provider Name and Address Organization Details Recorded Time 7 I&D completed Yaneth Perez PA-C Attn: Accounting, [facility], [place], [address], [facility] 02/16/2017 09:41:11 Tonsillectomy completed Heidi Beavers CT - [facility] 10/17/2016 14:04:02 Imaging Results None recorded. Procedure Notes None recorded. Medical Equipment None Reported. Allergies Allergen ID Allergen Name Allergen Category Reaction Reaction Severity Criticality Documentation Date Start Date Code Code System Note Provider Name and Address Organization Details Recorded Time 92012 Product containin g penicilli n and antibioti c (product) medicatio n rash severe Not available 10/17/2016 16070 05 SNOMED as a child , has [...] prednisone 10 mg tablet take as follows:w navajo 1: 4 tablets by mouth each dayweek [...] Not Available Vitals Date Recorded Body weight Oxygen saturation Oxygen saturation in Arterial blood by Pulse oximetry Heart rate Body temperature Respiratory rate Systolic blood pressure Diastolic blood pressure Provider Name and Address Organization Details Last Updated DateTime 1 13744.8 6 g 98 % 98 % 93 /min 98.6 [degF] 16 /min 140 mm[Hg] 80 mm[Hg] Aiden Wilkins MA [facility] 15:20:44 Date Recorded Systolic blood pressure Diastolic blood pressure Provider Name and Address Organization Details Last Updated DateTime 01/29/2021 132 mm[Hg] 78 mm[Hg] So Garcia APN, EMILY Attn: Accounting,[address] [place], [address], [facility] 01/29/2021 15:40:34 Date Recorded Body height Body mass index (BMI) Body weight Oxygen saturation Oxygen saturation in Arterial blood by Pulse oximetry Heart rate Respiratory rate Body temperature Systolic blood pressure Diastolic blood pressure Provider Name and Address Organization Details Last Updated DateTime 3 179.71 cm 24.9 kg/m2 34296.8 5 g 99 % 99 % 104 /min 16 /min 98.6 [degF] 136 mm[Hg] 90 mm[Hg] Joanne Finn [facility] 3 10:30:38 Date Recorded Body height Body mass index (BMI) Body weight Oxygen saturation Oxygen saturation in Arterial blood by Pulse oximetry Heart rate Respiratory rate Body temperature Systolic blood pressure Diastolic blood pressure Provider Name and Address Organization Details Last Updated DateTime 3 179.71 cm 25.1 kg/m2 16429.0 3 g 98 % 98 % 104 /min 16 /min 97.5 [degF] 130 mm[Hg] 90 mm[Hg] Joanne Finn [facility] 3 15:47:21 Date Recorded Body height Body mass index (BMI) Body weight Oxygen saturation Oxygen saturation in Arterial blood by Pulse oximetry Respiratory rate Body temperature Heart rate Systolic blood pressure Diastolic blood pressure Provider Name and Address Organization Details Last Updated DateTime 4 179.71 cm 25.4 kg/m2 58604.2 2 g 97 % 97 % 16 /min 97.5 [degF] 98 /min 164 mm[Hg] 98 mm[Hg] GARO Talley [facility] 4 15:42:32 Date Recorded Systolic blood pressure Diastolic blood pressure Provider Name and Address Organization Details Last Updated DateTime 03/12/2024 142 mm[Hg] 88 mm[Hg] So Garcia APN, FELT PULLER-C Attn: Accounting,[address] [place], [address], [facility] 03/12/2024 16:03:13 Social History Question Answer Notes LastModified by Organization Details LastModified Time Tobacco Smoking Status Current Every Day Smoker Heidi graham [facility] 10/17/2016 14:03:08 Do You Have An Advance Directive? No Information not available 12/19/2018 What Is Your Level Of Alcohol Consumption? Heavy Couple Drinks A Night Information not available 03/12/2024 Are You Blind Or Do You Have Difficulty Seeing? No Information not available 01/29/2021 What Is Your Level Of Caffeine Consumption? Moderate Tea, Cinnamin Water [email or web address] Information not available 10/25/2022 How Much Tobacco [...] Anxious, Or Unable To Sleep At Night)? [id number] Information not available 01/29/2021 Do You Use Any Illicit Or Recreational Drugs? Yes Occassional Marjiuanna [email or web address] Information not available 09/22/2022 Do You Use Sunscreen Routinely? No Information not available 12/19/2018 Has Tobacco Cessation Counseling Been Provided? Yes [email or web address] Information not available 10/25/2022 On What Date [...] Response Coronary Artery Disease N Other N Atrial Fibrillation N High Blood Pressure N Kidney or Bladder Problems N Thyroid Problems N GI Problems N Depression N COPD N Blood Clots N Skin Problems N Anemia N Heart Attack (DE) N Anxiety Disorder N Diabetes N Muscle, Joint, or Bone Problems N Seizures/Epilepsy N Acid Reflux (GERD) N Cancer N Stroke N Asthma N Allergies N High Cholesterol N Hepatitis N Liver Disease N Headaches N Heart Failure N Osteoporosis N Past Encounters Encounter ID Performer Location Encounter Start Date Encounter Closed Date Diagnosis/Indication Diagnosis SNOMED-CT Code Diagnosis ICD10 Code Diagnosis Note [id number] So Garcia APN, FNP-C [facility] ([facility]) [address] [place] [address] 10/17/2016 13:53:57 10/17/2016 15:53:26 Screening for disorder 669291503 Z13.9 Adult [facility] th examination 036619864 Z00.00 well exam and lab work to be done yearly, healthy diet advised Tobacco de pendence syndrome 18032853 F17.290 Smoking cessation encouraged . Bilateral wrist pain 981 5765164 7876778 M25.531 M25.532 OTC aleve or ibuprofen or tylenol as needed, Cyst of scalp 623077874 L72.9 derm referral [id number] So Garcia APN, FNP-C [facility] ([facility]) [address] [place] [address] 10/24/2016 16:33:51 10/25/2016 09:24:45 Bilateral wrist pain 3658079992 7690933 M25.531 M25.532 OTC aleve or ibuprofen or tylenol as needed, Tobacco de pendence syndrome 07953784 F17.290 Smoking cessation encouraged . Cyst of scalp 330447897 L72.9 derm referral made, f/u with specialist , no c/o pain or drainage [id number] [facility] ([facility]ult [facility]) [address] [place] [address] 02/16/2017 08:37:41 02/16/2017 15:25:04 Partial thickness burn of hand 48863785 T23.202A 1st to 2nd degree burn w/ blistering causing increased pain. Pt given Motrin 2 tabs prior to procedure. He can continue PRN Tylenol #3 and ibuprofen for pain at home. Cont. silvadene BID until blisters healed. No infection noted, but abx given to prevent infection since he works with his hands in a [employer]. Keep hand covered. f/u with PCP in one week to monitor healing. [id number] So Garcia APN, FNP-C [facility] ([facility]) [address] [place] [address] 02/22/2017 16:08:17 02/28/2017 10:06:37 Partial thickness burn of hand 67124891 T23.202A 1st to 2nd degree burn w/ blistering ; abx given to prevent infection nad has a few days left.-no s/s infection, cont silvadene until finished with PO abx then may switch to mupirocin until wound healed. Keep blisters clean and covered, especially while at work. RTO if any fever or odor or redness. [id number] So Garcia APN, FNP-C [facility] ([facility]) [address] [place] [address] 05/10/2017 16:17:11 05/11/2017 14:19:06 Increased frequency of urination 198969171 R35.0 urine dip wnl, send for c/s and await results for plan, also ordered psa. consider urology referral. possible bph Constipation 32660990 K5 9.00 start 17 g miralax qd until stool soft and formed; increase fiber and water intake during the day, decrease in evening Excessive thirst 6112784 7 R63.1 cont to drink 6-8 bottles a day, may add sports drink when hot outside/in side warehouse. Venereal d isease screening 642559157 Z11.3 pt requests lab work. [id number] So Garcia APN, FNP-C [facility] ([facility]ult [facility]) [address] [place] [address] 05/17/2017 16:25:45 05/17/2017 17:58:41 Increased frequency of urination 900701658 R35.0 Pt declined referral to urology at this time. [id number] So Garcia APN, FNP-C [facility] [address] [place] [address] 11/20/2017 15:35:52 11/21/2017 08:32:14 Tobacco dependence syndrome 13317749 F17.290 Smoking cessation encouraged . Adult [facility] th examination 638884253 Z00.00 well exam and lab work to be done yearly, healthy diet advised Body mass index 25-29 - overweight 435336911 Z68.25 bmi 25.2 Exposure t o sexually transmissible disorder 242660946 Z20.2 pt requests lab work. was exposed recently, no symptoms Anxiety 07997697 F41.9 possibly being willing to start medication , smoking MJ daily. Lexapro handout provided from [facility] Cyst of scalp 622268296 L72.9 derm referral made, f/u with specialist , no c/o pain or drainage [id number] So Garcia APN, FNP-C [facility] [address] [place] [address] 05/22/2018 16:17:43 05/22/2018 17:35:37 Body mass index 25-29 - overweight 973325390 Z68.25 bmi 25.2 Anxiety 29727951 F41.9 possibly willing to start medication , smoking MJ daily but less; Tobacco de pendence syndrome 21143735 F17.290 Smoking cessation encouraged . Exposure t o sexually transmissible disorder 910357304 Z20.2 pt requests lab work. was exposed recently, no symptoms Cyst of scalp 663351403 L72.9 derm referral made, f/u with specialist , no c/o pain or drainage Prehypertension 69670732 9 R03.0 low salt diet advised Herpes simplex 41183791 B00.9 valtrex and Denavir requested for HSV outbreaks [id number] So Garcia APN, FNP-C [facility] [address] [place] [address] 09/18/2018 09:03:41 09/19/2018 09:22:46 Influenza-like symptoms 259586266 R68.89 rapid flu negative, dwp keeping hydrated, RTO if symptoms worsen Viral gastroenteritis 11 5858535 A08.4 Increase clear fluids. BRAT (bananas, rice, applesauce , toast) diet. If pain increases or if fever, go to ER. May need to f/u with GI if persists [facility]. Keep log of foods/symp toms. Acute otitis media 75303 03 H65.02 left TM's with erythema and purulent middle ear fluid, start amoxicilli n 500 mg capsule, take 1 three times a day for 7 days, may increase probiotics in between times. Try foods such as yogurt and naturally fermented veggies and drinks like kefir and kombucha. [id number] So Garcia APN, FNP-C [facility] [address] [place] [address] 12/19/2018 14:06:06 12/20/2018 08:56:07 Pain in elbow 65089319 M25.522 dwp trauma with delayed healing? possible soft tissue injury, firm mass palpated, will send for xr and possibly US, may still need ortho referral, dwp NSAID use Elevated blood-pressure reading without diagnosis of hypertension 082560753 R03.0 BP in hypertensi ve range, dwp risk, reducing salt and increasing exercise Tobacco user 845493334 Z 72.0 Smoking cessation encouraged . [id number] So Garcia APN, FNP-C [facility]) [address] [place] [address] 07/28/2020 08:35:43 07/29/2020 04:28:28 Prehypertension 122633437 R03.0 low salt diet advised Anxiety 52055572 F41.9 no meds at this time, smoking MJ daily but less; Tobacco de pendence syndrome 97272515 F17.290 Smoking cessation encouraged . Herpes simplex 06933359 B00.9 valtrex requested for HSV outbreaksD enavir also used in past [id number] So Garcia APN, FNP-C [facility]) [address] [facility] [place] [address] 01/29/2021 14:50:09 02/02/2021 09:29:33 Anxiety 17130264 F41.9 possibly willing to start medication , smoking MJ daily but less; Tobacco de pendence syndrome 39367119 F17.290 Smoking cessation encouraged . Prehypertension 90453653 9 R03.0 low salt diet advised Body mass index 25-29 - overweight 477522392 Z68.25 bmi 25.2 Exposure t o sexually transmissible disorder 849191694 Z20.2 pt requests lab work. was exposed recently, no symptoms Herpes simplex 92045199 B00.9 valtrex and Denavir requested for HSV outbreaks Adult [facility] th examination 416303689 Z00.01 well exam and lab work to be done yearly, healthy diet advised Vasectomy requested 1838 43989 Z30.2 [id number] So Garcia APN, FNP-C [facility]) [address] [place] [address] 09/22/2022 10:19:25 09/26/2022 10:44:16 Injury of finger 09712071 S69.92XA left middle finger, possible fx, pt declines xray, will splint in office Elevated blood-pressure reading without diagnosis of hypertension 212092840 R03.0 BP in pre-hypert ensive range, dwp risk, reducing salt and increasing exercise [id number] So Garcia APN, FNP-C [facility]) [address] [place] [address] 10/25/2022 15:33:00 11/01/2022 13:56:03 Adult health examination 814917757 Z00.01 well exam and lab work to be done yearly, healthy diet advised Body mass index 25-29 - overweight 748481385 Z68.25 bmi 25.1 Tobacco de pendence syndrome 06911408 F17.290 Smoking cessation encouraged . Anxiety 26866431 F41.9 possibly willing to start medication , smoking MJ daily but less; Prehypertension 60336837 9 R03.0 low salt diet advised Exposure t o sexually transmissible disorder 283033874 Z20.2 pt requests lab work. was exposed recently, no symptoms Herpes simplex 00634207 B00.9 valtrex and Denavir requested for HSV outbreaks, ok to call for refill [id number] So Garcia APN, FNP-C [facility]) [address] [place] [address] 03/12/2024 15:29:38 03/15/2024 11:56:00 Adult health examination 047089883 Z00.01 well exam and lab work to be done yearly, healthy diet advised Tobacco de pendence syndrome 66038732 F17.290 Smoking cessation encouraged . Herpes simplex 77511783 B00.9 valtrex and Denavir requested for HSV outbreaks, ok to call for refill Body mass index 25-29 - overweight 104383381 Z68.25 bmi 25.4 Exposure t o sexually transmissible disorder 058836575 Z20.2 pt requests lab work. was not exposed recently, no symptomsco nsent discussed Prehypertension 24885772 9 R03.0 BP in pre-hypert ensive range, dwp risk, reducing salt and increasing exercise Hemorrhoids 64992935 K64 .9 has tried otc options, minimally helping, pt plans to see rectal surgeon after the end of the year when he has more PTOdoes not need referral, just letting us know Positive s creening for depression on PHQ-9 (Patient Health Questionnaire 9) 6609890758 38753 Z13.31 depression screening positive-r epeat at followuppt [...] Obrien Member ID Guarantor Name 07/28/2020 1 [facility] [place] [facility] [id number] Hal Rust [id number] Hal Rust 01/29/2021 1 [facility] [place] [facility] [id number] Hal Rust [id number] Hal Rust 09/22/2022 1 [place] [id number] Hal Rust [id number] Hal Rust 10/25/2022 1 [place] [id number] Hal Rust [id number] Hal Rust 03/12/2024 1 [place] [id number] Hal Rust [id number] Hal Rust Notes Date Note Type [...] check, declined hiv screening. So Garcia APN, FELT PULLER-C Attn: [address]ing[address] [place], [address], [place] [facility] 07/28/2020 11:24:50 01/29/2021 text/html 01/29/21: [...] So Garcia APN, FNP-C Attn: [address]ing[address] [facility], [place], [address], [facility] 01/29/2021 15:55:00 09/22/2022 text/html yesterday hit hi s left middle finger pain and swollen. smashed it cutting smalls. taking tylenol; RICE and painful to move So Garcia APN, EMILY Attn: [address]ing[address] [facility], [place], [address], [facility] 09/22/2022 10:44:36 10/25/2022 text/html no symptoms, jus t here for f/u/preventative visit and std screening, not recently exposed but would like labs with any future lab draw did get vasectomy done, did not go back for sperm count testing So Garcia APN, FNP-C Attn: Accounting,[address] [facility], [place], [address], [place] [facility] 10/25/2022 17:51:49 03/12/2024 text/html no symptoms, jus t here for f/u/preventative visit and std screening, not recently exposed but would like labs with any future lab draw pt c/o hemorrhoids- tried Prep H but they keep coming back So Garcia APN, FNP-C Attn: Accounting[address] [facility], [place], [address], [place] [facility] 03/12/2024 16:05:44
--- OUTSIDE RECORDS SUMMARY | 2024-09-16 16:39 | XMS_ITS | Clinical Summary ---
Author Organization [facility] Address [address] [address] Phone Care Team Providers Care Snow Plow Operator Name Role Phone Unavailable Primary Care Provider [...]
--- OUTSIDE RECORDS SUMMARY | 2024-09-16 16:39 | XMS_ITS | Referral Summary ---
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
--- OUTSIDE RECORDS SUMMARY | 2024-09-16 16:39 | XMS_ITS | Clinical Summary ---
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
--- NOTE | 2024-09-16 16:40 | P.CONGI_ITS ---
Assessment and Plan Assessment and plan (1) Post-polypectomy bleeding: Status: Acute Assessment and Plan: The patient's cause of current bleeding is most likely post polypectomy. Will admit for monitoring, check hemoglobin and hematocrit every 8 hours and will provide large volume prep for colonoscopy tomorrow morning with attempt of hemostasis. (2) Bright red rectal bleeding: Code(s): K62.5 - Hemorrhage of anus and rectum Status: Acute GI Consult Note Consult date/time: 09/16/24 16:40 Reason for consult: Lower GI bleed HPI: Hal Rust is a 44 year old male who had a colonoscopy 3 days ago, with removal of a medium-sized pedunculated polyp in the ascending colon , a clip was placed in the polypectomy stalk. His was in his usual state of health until this morning when he started passing maroon stools. He came to the emergency room and was found tachycardic with a heart rate of 130 but normal blood pressure. He has continued to pass bloody stools while he is in the emergency room. He is admitted for monitoring and colonoscopy tomorrow. Review of Systems 2 Review of Systems: All systems reviewed & are unremarkable except as noted in HPI and below PMFSH Past Medical History Medical History Anxiety Rhinitis GERD (gastroesophageal reflux disease) Surgical History Surgical History H/O vasectomy History of tonsillectomy Social History Social History Smoking packs per day: 1 Smoking cigarettes per day: 20.0 Years smoked: 25 Smoking pack-years: 25.00 Smoking status: Current every day smoker Tobacco type: cigarettes Alcohol intake: current Alcohol use details: 2-6 a night, 30 a weekend on average Substance use: current Substance use type: marijuana Other substance usage details: smokes weed in the evening daily Living arrangements: with family Spiritual care concerns: No Meds Home Medications and Allergies Home Medications ?Medication ?Instructions ?Recorded ?Confirmed ?Type famotidine 20 mg tablet (Acid 20 mg PO DAILY GERD 09/02/24 09/16/24 History Controller) Allergies Allergy/AdvReac Type Severity Reaction Status Date / Time Penicillins Allergy Rash Verified 09/16/24 16:10 Vital Signs Vital Signs - 24 hr 09/16/24 15:25 Temperature 98.8 F Pulse Rate 141 H Respiratory Rate 20 Blood Pressure 172/111 H Pulse Oximetry 100 Exam 2 Const: General: cooperative and healthy appearing Resp: Effort & Inspection: normal respiratory effort and able to speak in complete sentences Auscultation: clear to auscultation bilaterally Cardio: Rate: regular rate Rhythm: regular rhythm GI: Inspection: normal to inspection GI Palp: No No hepatosplenomegaly present Auscultation: normal bowel sounds Rectal Exam: deferred Skin: General skin exam: normal color Psych: Appearance: grossly normal Mental Status: mental status grossly normal Results Labs 09/16/24 16:02 09/16/24 16:02 Labs: Short CBC 09/16/24 Range/Units 16:02 WBC 16.8 H (4.5-10.0) K/mm3 Hgb 13.5 L (14.0-18.0) g/dL Hct 41.4 L (42.0-52.0) % Plt Count 234 (150-375) k/mm3 BMP 09/16/24 16:02 Sodium 138 Potassium 3.8 Chloride 100 Carbon Dioxide 25 BUN 13 Creatinine 0.89 Glucose 102 Calcium 9.3 Liver Function 09/16/24 Range/Units 16:02 Total Bilirubin 0.5 (0.2-1.3) mg/dL AST 29 (17-59) U/L ALT 20 (6-50) U/L Alkaline Phosphatase 88 (38-126) U/L Albumin 4.6 (3.5-5.1) g/dL
--- NOTE | 2024-09-16 17:30 | PM.IMHP ---
H&P: HPI History of Present Illness Date/Time: 09/16/24 17:30 Chief Complaint: Blood in stool. Narrative: This is a very pleasant 44-year-old male who presented to the emergency department for evaluation of bloody stools. The patient provides the following history. He had a colonoscopy on 09/13/2024 for evaluation of nearly daily episodes of painless rectal bleeding for the last several months and was found to have internal hemorrhoids and colon polyps. Several sessile polyps were seen in the distal rectosigmoid and sigmoid colon status post cold snare polypectomy. A 15 mm pedunculated polyp was seen in the ascending colon, status post hot snare polypectomy and placement one Resolution clip to prevent bleeding. He has felt okay since that time. This morning however he developed abdominal cramping and reports having multiple bloody stools. The stools are described as bright red blood occasionally admixed with maroon clots. He is feeling weak, lightheaded, and dizzy. He denies syncope, fever, chest pain, shortness of breath, and vomiting. In the ED: Vital signs on arrival include a temperature of 98.8?, blood pressure 172/111, pulse 141, respiratory rate 20, SpO2 100% on room air. Labs are significant for WBC count of 16.8, hemoglobin 13.5, hematocrit 41.4, INR 0.9, and unremarkable chemistries. 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 He continues to have innumerable bouts of bloody stools and he had a vagal episode this evening in which he became hypotensive into the 90 systolic and tachycardic into the 140s. He was given 1000 mg tranexamic acid and 3 units packed red blood cells were ordered as his hemoglobin dropped 5.6 g. He is being admitted to the IMU in this setting for close monitoring. Review of Systems Review of Systems: 12 systems were reviewed and are negative except for as per HPI. [facility] Past Medical History Medical History (Updated 09/16/24 @ 20:59 by Kaykay Ackerman PA-C) Daily consumption of alcohol Nicotine dependence Obstructive sleep apnea mild and no recommendations for CPAP Gastroesophageal reflux disease Anxiety Rhinitis Surgical History Surgical History (Updated 09/16/24 @ 20:54 by Kaykay Ackerman PA-C) History of colonoscopy with polypectomy History of vasectomy History of tonsillectomy Social History Social History (Updated 09/16/24 @ 20:55 by Kaykay Ackerman PA-C) Social History: Surrogate medical decision maker: Catina Rust, spouse ([phone]). Code status: Full code. Smoking packs per day: 1 Smoking cigarettes per day: 20.0 Years smoked: 25 Smoking pack-years: 25.00 Smoking status: Current every day smoker Tobacco type: cigarettes Alcohol intake: current Alcohol use details: 2-6 a night, 30 a weekend on average Substance use: current Substance use type: marijuana Other substance usage details: smokes marijuana in the evening daily Living arrangements: with family Additional living arrangements comments: Lives with spouse and children in [place]. Occupation/Education: occupation Additional occupation/education comments: [employer]. Spiritual care concerns: No Meds Home Medications and Allergies Home Medications ?Medication ?Instructions ?Recorded ?Confirmed ?Type famotidine 20 mg tablet (Acid 20 mg PO DAILY GERD 09/02/24 09/16/24 History Controller) Allergies Allergy/AdvReac Type Severity Reaction Status Date / Time Penicillins Allergy Rash Verified 09/16/24 16:10 Vital Signs Vital Signs - 24 hr 09/16/24 15:25 Temperature 98.8 F Pulse Rate 141 H Respiratory Rate 20 Blood Pressure 172/111 H Pulse Oximetry 100 Exam Narrative: General: Ill-appearing male supine in bed. Weight: 84 kg. BMI: 25.1. HEENT: Normocephalic, atraumatic. PERRL, EOMI. Sclera anicteric. Tacky mucous membranes. Lips are pale. Neck: Supple. Respiratory: Lungs are clear to auscultation bilaterally. Cardiovascular: Tachycardic with normal S1-S2. Gastrointestinal: Abdomen is slightly distended with positive bowel sounds. He is tender to mild her caution and gentle palpation throughout the periumbilical region with voluntary guarding but no obvious rebound tenderness. Skin: Cool, dry, and pale. Decreased capillary refill. Extremities: No cyanosis, clubbing, or edema. Radial and pedal pulses intact. Neurological: Alert and oriented. Cranial nerves 2-12 are grossly intact. No gross focal deficits to casual conversation. Psychiatric: Pleasant and cooperative with normal mood and affect. Judgment and insight intact. H&P: Results Labs Labs: Short CBC 09/16/24 Range/Units 16:02 WBC 16.8 H (4.5-10.0) K/mm3 Hgb 13.5 L (14.0-18.0) g/dL Hct 41.4 L (42.0-52.0) % Plt Count 234 (150-375) k/mm3 BMP 09/16/24 16:02 Sodium 138 Potassium 3.8 Chloride 100 Carbon Dioxide 25 BUN 13 Creatinine 0.89 Glucose 102 Calcium 9.3 Liver Function 09/16/24 Range/Units 16:02 Total Bilirubin 0.5 (0.2-1.3) mg/dL AST 29 (17-59) U/L ALT 20 (6-50) U/L Alkaline Phosphatase 88 (38-126) U/L Albumin 4.6 (3.5-5.1) g/dL Impressions Abdomen/Pelvis CT 09/16/24 18:35 IMPRESSION: Mesenteric panniculitis. Mostly fluid-filled colon, as can be seen with diarrheal illness. Assessment and Plan Assessment and plan (1) Lower GI bleed: Code(s): K92.2 - Gastrointestinal hemorrhage, unspecified Status: Acute (2) Post-polypectomy bleeding: Status: Acute (3) Acute blood loss anemia: Code(s): D62 - Acute posthemorrhagic anemia Status: Acute (4) Gastroesophageal reflux disease: Code(s): K21.9 - Gastro-esophageal reflux disease without esophagitis Status: Acute (5) Nicotine dependence: Code(s): F17.200 - Nicotine dependence, unspecified, uncomplicated Status: Acute (6) Daily consumption of alcohol: Code(s): Z78.9 - Other specified health status Status: Acute Plan The patient presented to the emergency department for evaluation of bloody stool since this morning as detailed in HPI. Labs, imaging, EKG, and all reports were personally reviewed. He had a colonoscopy done several days ago in which a 15 mm pedunculated ascending colon polyp was removed via hot snare polypectomy and several systolic polyps removed via cold snare polypectomy. His bleeding is most likely from the polypectomy site. His hemoglobin has dropped 5.6 g since presentation and he received TXA in the ED. 3 units packed red blood cells have been ordered to start and hemoglobin and hematocrit will be monitored closely. He is being admitted to the IMU for close monitoring; aside from a vagal episode earlier in the evening, his vitals have seemed to stabilize. Dr. Renae (GI) has been consulted and his recommendations are appreciated. The patient drinks alcohol daily but denies ever having signs or symptoms of alcohol withdrawal when he does not drink however we will initiate CIWA protocol. He declines the need for nicotine patch. His home medications will be reviewed and resumed as appropriate. Findings and treatment plan were discussed with the patient. Questions were solicited and answered to satisfaction. The patient's medical management will be taken over by the hospitalist team in a.m. Quality VTE Prophylaxis VTE prophylaxis: mechanical ordered If No VTE Prophylaxis Answer both mechanical and pharmacologic: Reason no pharmacologic proph: medical contraindication active bleeding/bleeding risk The patient has been admitted under observation status. Hospitalist [facility] Advance Care Plan I have confirmed that the patient's Advanced Care Plan is present, code status is documented, or surrogate decision maker is listed in patient medical record.: Yes Medication Reconciliation I have utilized all available resources to obtain, update and review the patients current medications (includes all prescriptions, OTC, herbals, cannabis, and nutritional supplements).: Yes
--- NOTE | 2024-09-16 17:43 | PC.NURSE ---
1730: Pt became pale, diaphoretic states he feels like he is going to pass out, need to have a BM. Pt hypotensive. Dr. Lassiter called to pt room Normal Saline 1000ml initiated per verbal order, #2 IV inserted.
[2024-09-16] MEDS: SODIUM CHLORIDE 0.9% IV 1,000 ML 999 ML (17:49)
[2024-09-16] MEDS: TRANEXAMIC ACID 1,000MG/ISO100 1,000 MG/100 ML BAG 200 MG IVPB (17:49)
--- NOTE | 2024-09-16 18:30 | PC.NURSE ---
Pt return from CT, color remains pale, pasty, moist. B/P stable.
--- NOTE | 2024-09-16 18:32 | PC.NURSE ---
1814; Assisted pt to BSC, large amount of bright red blood evacuated per bowel.
[2024-09-16] MEDS: DICYCLOMINE HCL INJ 20 MG/2 ML VIAL IM (19:36)
[2024-09-16] MEDS: MORPHINE SULFATE (*CRX) 2 MG/ML INJ IV PUSH (19:36)
[2024-09-16 20:04] LABS: Hematocrit 24.1 % (42.0-52.0); Hemoglobin 7.9 g/dL (14.0-18.0)
[2024-09-16] MEDS: PEG (High)/E-LYTE SOLN 4,000 ML BTL 2000 ML PO (21:39)
[2024-09-16 21:59] LABS: Magnesium 2.1 mg/dL (1.6-2.3)
--- NOTE | 2024-09-16 23:25 | ADMGEN ---
This patient, Hal Rust, was admitted to IMU Room 209-01. Patient/family oriented to hospital policies and general routines including ID bracelet, bed and alarms, visiting hours, pain management, procedures, bathroom and other care routines, personal items, smoking policy, room service/diet, and visiting hours. Information on how to activate the Rapid Response Team has been discussed. Patient/Family are encouraged to report perceived risks to care and to ask questions if they do not understand what they are told or what they should do.
[2024-09-16] MEDS: THIAMINE HCL 200 MG/2 ML VIAL 100 MG IV PUSH (23:46)
[2024-09-17] VITALS (26 sets, daily range): BP systolic 102–130; BP diastolic 68–90; PULSE 65–727; RESP 14–21; TEMP 36.2–36.8; O2SAT 98–100
[2024-09-17] MEDS: MORPHINE SULFATE (*CRX) 2 MG/ML INJ IV PUSH ×4 (00:18→09:09)
[2024-09-17] MEDS: ONDANSETRON INJ 4 MG/2 ML VIAL IV PUSH ×3 (00:18→09:10)
[2024-09-17 01:07] LABS: Hematocrit 30.2 % (42.0-52.0); Hemoglobin 9.9 g/dL (14.0-18.0)
[2024-09-17] MEDS: SODIUM CHLORIDE 0.9% IV 1,000 ML 125 ML IV CONT (03:46)
[2024-09-17] MEDS: PEG (High)/E-LYTE SOLN 4,000 ML BTL 2000 ML PO (03:46)
[2024-09-17 06:16] LABS: Hematocrit 32.8 % (42.0-52.0); Mean Corpuscular HGB Conc 33.5 g/dl (32-36); Mean Corpuscular Hemoglobin 32.3 pg (26-34); Mean Corpuscular Volume 96.2 fl (80-100); Mean Platelet Volume 9.9 fl (7.4-10.4); Platelet Count Result 121 k/mm3 (150-375); Red Blood Count 3.41 M/mm3 (4.6-6.20); Red Cell Distribution Width 15.2 % (11.5-14.5); White Blood Count 9.6 K/mm3 (4.5-10.0)
--- NOTE | 2024-09-17 06:26 | PC.NURSE ---
Audrey RN from GI lab called for pt update. Per Dr. Renae, he does not expect pt's stools to be clear. Pt needs to finish bowel prep and be NPO by 0930. Pt to go to GI lab around noon. Informed pt and his spouse. Understanding verbalized. Consent obtained.
[2024-09-17 06:27] LABS: Anion Gap 6 mmol/L (4-12); Blood Urea Nitrogen 11 mg/dL (9-20); Calcium 7.5 mg/dL (8.4-10.2); Carbon Dioxide 26 mmol/L (22-30); Chloride 105 mmol/L (98-107); Estimated CRCL calculation 120 ml/min; Estimated Glomerular Filt Rate > 60; Glucose 100 mg/dL (65-110); Magnesium 1.8 mg/dL (1.6-2.3); Potassium 3.9 mmol/L (3.4-5.0); Sodium 137 mmol/L (137-145)
--- NOTE | 2024-09-17 08:25 | WPDGIPROGNO ---
Progress Note: A&P Assessment and Plan (1) Post-polypectomy bleeding: Status: Acute Assessment and Plan: patient with post polypectomy rectal bleeding, with a significant drop in hematocrit. Will perform colonoscopy with possible hemostasis this morning. Subjective Date/time seen: 09/17/24 08:25 Interval history: The patient remained hemodynamically stable throughout the night, with no drops in blood pressure. He did require transfusion of 3 units of packed red blood cells and is currently finishing his last L of GoLYTELY for an emergent colonoscopy today at noon. Exam Narrative: Unable to perform now, patient is in the Commode. Objective Data Vital Signs Vital Signs: Vital Signs - 24 hr 09/16/24 15:25 09/16/24 17:00 09/16/24 17:15 Temperature 98.8 F Pulse Rate 141 H 126 H 126 H Respiratory Rate 20 10 L 16 Blood Pressure 172/111 H 135/98 H Pulse Oximetry 100 100 100 Oxygen Delivery 09/16/24 17:30 09/16/24 17:30 09/16/24 17:31 Temperature 97.9 F Pulse Rate 109 H 122 H 137 H Respiratory Rate 14 17 16 Blood Pressure 94/62 L Pulse Oximetry 100 Oxygen Delivery 09/16/24 17:46 09/16/24 17:47 09/16/24 17:52 Temperature Pulse Rate 99 107 H 117 H Respiratory Rate 16 18 18 Blood Pressure 111/77 112/79 Pulse Oximetry 100 100 100 Oxygen Delivery 09/16/24 18:07 09/16/24 18:13 09/16/24 18:25 Temperature Pulse Rate 126 H 121 H Respiratory Rate 13 Blood Pressure 130/80 Pulse Oximetry 100 100 Oxygen Delivery 09/16/24 18:28 09/16/24 18:30 09/16/24 18:31 Temperature Pulse Rate 106 H 111 H 103 H Respiratory Rate 13 11 L 10 L Blood Pressure 128/76 116/85 Pulse Oximetry 100 100 100 Oxygen Delivery 09/16/24 18:48 09/16/24 19:06 09/16/24 19:15 Temperature Pulse Rate 108 H 106 H 114 H Respiratory Rate 10 L 21 H 17 Blood Pressure Pulse Oximetry 99 100 100 Oxygen Delivery 09/16/24 19:30 09/16/24 19:31 09/16/24 19:45 Temperature Pulse Rate 96 101 H 97 Respiratory Rate 11 L 9 L 16 Blood Pressure 100/71 Pulse Oximetry 100 99 100 Oxygen Delivery 09/16/24 19:46 09/16/24 20:00 09/16/24 20:01 Temperature Pulse Rate 102 H 108 H 104 H Respiratory Rate 11 L 19 20 Blood Pressure 122/75 123/78 Pulse Oximetry 100 100 100 Oxygen Delivery 09/16/24 20:19 09/16/24 20:45 09/16/24 21:05 Temperature Pulse Rate 98 103 H 90 Respiratory Rate 14 12 19 Blood Pressure Pulse Oximetry 99 100 100 Oxygen Delivery 09/16/24 21:10 09/16/24 21:11 09/16/24 21:15 Temperature 98.1 F Pulse Rate 93 100 98 Respiratory Rate 18 18 Blood Pressure 119/77 119/77 Pulse Oximetry 100 100 99 Oxygen Delivery 09/16/24 21:27 09/16/24 21:28 09/16/24 21:30 Temperature 98.7 F Pulse Rate 98 94 95 Respiratory Rate 18 10 L 13 Blood Pressure 125/75 125/75 126/114 H Pulse Oximetry 100 100 100 Oxygen Delivery 09/16/24 21:32 09/16/24 21:44 09/16/24 21:45 Temperature Pulse Rate 96 115 H 119 H Respiratory Rate 20 16 11 L Blood Pressure 84/72 L 106/84 Pulse Oximetry 100 100 100 Oxygen Delivery 09/16/24 21:46 09/16/24 22:00 09/16/24 23:25 Temperature 98.5 F Pulse Rate 105 H 97 92 Respiratory Rate 11 L 12 20 Blood Pressure 119/76 132/92 H Pulse Oximetry 100 100 98 Oxygen Delivery 09/16/24 23:31 09/16/24 23:56 09/17/24 00:00 Temperature 98.1 F Pulse Rate 96 93 Respiratory Rate 18 Blood Pressure 109/79 Pulse Oximetry 100 Oxygen Delivery Room Air 09/17/24 00:00 09/17/24 00:06 09/17/24 00:13 Temperature 98.1 F Pulse Rate 91 89 86 Respiratory Rate 18 Blood Pressure 114/88 Pulse Oximetry 100 Oxygen Delivery 09/17/24 01:13 09/17/24 01:48 09/17/24 02:00 Temperature 97.9 F 97.9 F Pulse Rate 91 86 80 Respiratory Rate 18 18 Blood Pressure 130/79 125/83 Pulse Oximetry 99 99 Oxygen Delivery 09/17/24 02:06 09/17/24 03:06 09/17/24 03:42 Temperature 97.8 F 98 F 98.2 F Pulse Rate 80 80 86 Respiratory Rate 18 16 18 Blood Pressure 126/88 117/78 116/81 Pulse Oximetry 99 100 100 Oxygen Delivery 09/17/24 04:00 09/17/24 04:00 09/17/24 06:00 Temperature Pulse Rate 78 80 Respiratory Rate Blood Pressure Pulse Oximetry Oxygen Delivery Room Air 09/17/24 07:40 Temperature 97.5 F L Pulse Rate 68 Respiratory Rate 18 Blood Pressure 110/74 Pulse Oximetry 100 Oxygen Delivery Intake/Output Intake/Output: Intake & Output 09/14/24 09/15/24 09/16/24 09/17/24 23:59 23:59 23:59 23:59 Intake Total 2450 700 Output Total 200 Balance 2450 500 Meds/Results Medications: Active Medications Generic Name Dose Route Start Last Admin Trade Name Freq PRN Reason Stop Dose Admin Acetaminophen 650 mg 09/16/24 16:44 Acetaminophen 325 Mg Tablet PO Q4H PRN Mild Pain (1-3) or Fever Famotidine 20 mg 09/17/24 09:00 Famotidine 20 Mg/2 Ml Vial IV PUSH Q12HR [facility] Sodium Chloride 1,000 mls @ 125 mls/hr 09/16/24 16:45 09/17/24 04:11 Normal Saline Iv IV CONT Not Given .Q8H ARCHANA Lorazepam 1 mg 09/16/24 21:02 Lorazepam Inj (*Crx) 2 Mg/Ml Vial IV PUSH Q2H PRN CIWA 8-15 Lorazepam 2 mg 09/16/24 21:02 Lorazepam Inj (*Crx) 2 Mg/Ml Vial IV PUSH Q2H PRN CIWA > 15 Morphine Sulfate 2 mg 09/16/24 16:44 09/17/24 06:18 Morphine Sulfate (*Crx) 2 Mg/Ml Inj IV PUSH 2 mg Q2H PRN Administration Pain Rated 7-10 Ondansetron HCl 4 mg 09/16/24 16:44 09/17/24 03:46 Ondansetron Inj 4 Mg/2 Ml Vial IV PUSH 4 mg Q4H PRN Administration Nausea Thiamine HCl 100 mg 09/17/24 09:00 Thiamine Hcl 200 Mg/2 [facility] Results: ITS Impressions Abdomen/Pelvis CT 09/16/24 18:35 IMPRESSION: Mesenteric panniculitis. Mostly fluid-filled colon, as can be seen with diarrheal illness. Labs Labs: Laboratory Results - last 24 hr 09/16/24 09/16/24 09/17/24 16:02 19:58 00:27 WBC 16.8 H RBC 4.10 L Hgb 13.5 L 7.9 L D 9.9 L Hct 41.4 L 24.1 L 30.2 L MCV 101.0 H MCH 32.9 MCHC 32.6 RDW 13.2 Plt Count 234 MPV 10.3 Immature Gran % (Auto) 0.4 Neut % (Auto) 58.0 Lymph % (Auto) 31.5 [place] % (Auto) 7.7 Eos % (Auto) 1.6 Baso % (Auto) 0.8 Lymph # (Auto) 5.29 H [place] # (Auto) 1.3 H Eos # (Auto) 0.3 Baso # (Auto) 0.1 Abs Immat Gran (auto) 0.07 H Absolute Neuts (auto) 9.7 H Absolute Nucleated RBC 0.000 Nucleated RBC % 0.0 PT 12.9 INR 0.9 APTT 28.3 Sodium 138 Potassium 3.8 Chloride 100 Carbon Dioxide 25 Anion Gap 13 H BUN 13 Creatinine 0.89 Estim Creat Clear Calc 103 Estimated GFR > 60 Glucose 102 Calcium 9.3 Magnesium 2.1 Total Bilirubin 0.5 AST 29 ALT 20 Alkaline Phosphatase 88 Total Protein 8.0 Albumin 4.6 Blood Type O Positive Antibody Screen Negative Crossmatch See Detail 09/17/24 06:07 WBC 9.6 RBC 3.41 L Hgb 11.0 L Hct 32.8 L MCV 96.2 MCH 32.3 MCHC 33.5 RDW 15.2 H Plt Count 121 L MPV 9.9 Immature Gran % (Auto) Neut % (Auto) Lymph % (Auto) [place] % (Auto) Eos % (Auto) Baso % (Auto) Lymph # (Auto) [place] # (Auto) Eos # (Auto) Baso # (Auto) Abs Immat Gran (auto) Absolute Neuts (auto) Absolute Nucleated RBC Nucleated RBC % PT INR APTT Sodium 137 Potassium 3.9 Chloride 105 Carbon Dioxide 26 Anion Gap 6 BUN 11 Creatinine 0.73 Estim Creat Clear Calc 120 Estimated GFR > 60 Glucose 100 Calcium 7.5 L Magnesium 1.8 Total Bilirubin AST ALT Alkaline Phosphatase Total Protein Albumin Blood Type Antibody Screen Crossmatch
--- NOTE | 2024-09-17 08:59 | PM.IMPN ---
Progress Note: A&P Assessment and Plan (1) Lower GI bleed: Code(s): K92.2 - Gastrointestinal hemorrhage, unspecified Status: Acute (2) Post-polypectomy bleeding: Status: Acute (3) Acute blood loss anemia: Code(s): D62 - Acute posthemorrhagic anemia Status: Acute (4) Gastroesophageal reflux disease: Code(s): K21.9 - Gastro-esophageal reflux disease without esophagitis Status: Acute (5) Nicotine dependence: Code(s): F17.200 - Nicotine dependence, unspecified, uncomplicated Status: Acute (6) Daily consumption of alcohol: Code(s): Z78.9 - Other specified health status Status: Acute Plan The patient presented to the emergency department for evaluation of bloody stool since this morning as detailed in HPI. Labs, imaging, EKG, and all reports were personally reviewed. Acute GI bleed Recent colonoscopy done several days ago in which a 15 mm pedunculated ascending colon polyp was removed via hot snare polypectomy and several systolic polyps removed via cold snare polypectomy. Patient has active GI bleeding, likely secondary to polypectomy Appreciate GI consultation Plans colonoscopy today Acute blood loss anemia hemoglobin has dropped 5.6 g since presentation baseline 13.5 September 16, 2024 Received transfusion in the ED 3 units packed red blood cells Transfuse p.r.n. Follow-up hemoglobin and hematocrit Alcohol dependence The patient drinks alcohol daily but denies ever having signs or symptoms of alcohol withdrawal Monitor sign of alcohol withdrawal and management per [facility] protocol. Subjective Date/time seen: 09/17/24 08:59 Interval history: I saw examined the patient in presents of patient's family. Patient denied abdomen pain, bloody stool since morning. Patient also denies nausea vomiting. Patient has no Chest pain shortness of breath, palpitation. Patient is afebrile, blood pressure stable, labs reviewed, hemoglobin is trending up unstable Exam Narrative: GENERAL: Pleasant, in no acute distress. Well-nourished. - EYES: EOMI. Anicteric. - HENT: Moist mucous membranes. Pale - LUNGS: Clear to auscultation bilaterally, no wheezing, rhonchi, or rales. - CARDIOVASCULAR: Regular rate and rhythm. No murmur. No JVD. - ABDOMEN: Soft, non-tender and non-distended. No palpable masses. - EXTREMITIES: No edema. Peripheral pulses 2+. Non-tender. - NEUROLOGIC: No focal neurological deficits. CN II-XII grossly intact. - PSYCHIATRIC: Awake, Alert and oriented x 3. Appropriate mood and affect. - SKIN: No rashes or lesions. Warm. - LYMPH: No cervical lymphadenopathy. Objective Data Vital Signs Vital Signs: Vital Signs - 24 hr 09/16/24 15:25 09/16/24 17:00 09/16/24 17:15 Temperature 98.8 F Pulse Rate 141 H 126 H 126 H Respiratory Rate 20 10 L 16 Blood Pressure 172/111 H 135/98 H Pulse Oximetry 100 100 100 Oxygen Delivery 09/16/24 17:30 09/16/24 17:30 09/16/24 17:31 Temperature 97.9 F Pulse Rate 109 H 122 H 137 H Respiratory Rate 14 17 16 Blood Pressure 94/62 L Pulse Oximetry 100 Oxygen Delivery 09/16/24 17:46 09/16/24 17:47 09/16/24 17:52 Temperature Pulse Rate 99 107 H 117 H Respiratory Rate 16 18 18 Blood Pressure 111/77 112/79 Pulse Oximetry 100 100 100 Oxygen Delivery 09/16/24 18:07 09/16/24 18:13 09/16/24 18:25 Temperature Pulse Rate 126 H 121 H Respiratory Rate 13 Blood Pressure 130/80 Pulse Oximetry 100 100 Oxygen Delivery 09/16/24 18:28 09/16/24 18:30 09/16/24 18:31 Temperature Pulse Rate 106 H 111 H 103 H Respiratory Rate 13 11 L 10 L Blood Pressure 128/76 116/85 Pulse Oximetry 100 100 100 Oxygen Delivery 09/16/24 18:48 09/16/24 19:06 09/16/24 19:15 Temperature Pulse Rate 108 H 106 H 114 H Respiratory Rate 10 L 21 H 17 Blood Pressure Pulse Oximetry 99 100 100 Oxygen Delivery 09/16/24 19:30 09/16/24 19:31 09/16/24 19:45 Temperature Pulse Rate 96 101 H 97 Respiratory Rate 11 L 9 L 16 Blood Pressure 100/71 Pulse Oximetry 100 99 100 Oxygen Delivery 09/16/24 19:46 09/16/24 20:00 09/16/24 20:01 Temperature Pulse Rate 102 H 108 H 104 H Respiratory Rate 11 L 19 20 Blood Pressure 122/75 123/78 Pulse Oximetry 100 100 100 Oxygen Delivery 09/16/24 20:19 09/16/24 20:45 09/16/24 21:05 Temperature Pulse Rate 98 103 H 90 Respiratory Rate 14 12 19 Blood Pressure Pulse Oximetry 99 100 100 Oxygen Delivery 09/16/24 21:10 09/16/24 21:11 09/16/24 21:15 Temperature 98.1 F Pulse Rate 93 100 98 Respiratory Rate 18 18 Blood Pressure 119/77 119/77 Pulse Oximetry 100 100 99 Oxygen Delivery 09/16/24 21:27 09/16/24 21:28 09/16/24 21:30 Temperature 98.7 F Pulse Rate 98 94 95 Respiratory Rate 18 10 L 13 Blood Pressure 125/75 125/75 126/114 H Pulse Oximetry 100 100 100 Oxygen Delivery 09/16/24 21:32 09/16/24 21:44 09/16/24 21:45 Temperature Pulse Rate 96 115 H 119 H Respiratory Rate 20 16 11 L Blood Pressure 84/72 L 106/84 Pulse Oximetry 100 100 100 Oxygen Delivery 09/16/24 21:46 09/16/24 22:00 09/16/24 23:25 Temperature 98.5 F Pulse Rate 105 H 97 92 Respiratory Rate 11 L 12 20 Blood Pressure 119/76 132/92 H Pulse Oximetry 100 100 98 Oxygen Delivery 09/16/24 23:31 09/16/24 23:56 09/17/24 00:00 Temperature 98.1 F Pulse Rate 96 93 Respiratory Rate 18 Blood Pressure 109/79 Pulse Oximetry 100 Oxygen Delivery Room Air 09/17/24 00:00 09/17/24 00:06 09/17/24 00:13 Temperature 98.1 F Pulse Rate 91 89 86 Respiratory Rate 18 Blood Pressure 114/88 Pulse Oximetry 100 Oxygen Delivery 09/17/24 01:13 09/17/24 01:48 09/17/24 02:00 Temperature 97.9 F 97.9 F Pulse Rate 91 86 80 Respiratory Rate 18 18 Blood Pressure 130/79 125/83 Pulse Oximetry 99 99 Oxygen Delivery 09/17/24 02:06 09/17/24 03:06 09/17/24 03:42 Temperature 97.8 F 98 F 98.2 F Pulse Rate 80 80 86 Respiratory Rate 18 16 18 Blood Pressure 126/88 117/78 116/81 Pulse Oximetry 99 100 100 Oxygen Delivery 09/17/24 04:00 09/17/24 04:00 09/17/24 06:00 Temperature Pulse Rate 78 80 Respiratory Rate Blood Pressure Pulse Oximetry Oxygen Delivery Room Air 09/17/24 07:40 09/17/24 08:31 Temperature 97.5 F L Pulse Rate 68 Respiratory Rate 18 Blood Pressure 110/74 Pulse Oximetry 100 100 Oxygen Delivery Room Air Intake/Output Intake/Output: Intake & Output 09/14/24 09/15/24 09/16/24 09/17/24 23:59 23:59 23:59 23:59 Intake Total 2450 700 Output Total 200 Balance 2450 500 Meds/Results Medications: Active Medications Generic Name Dose Route Start Last Admin Trade Name Freq PRN Reason Stop Dose Admin Acetaminophen 650 mg 09/16/24 16:44 Acetaminophen 325 Mg Tablet PO Q4H PRN Mild Pain (1-3) or Fever Famotidine 20 mg 09/17/24 09:00 Famotidine 20 Mg/2 Ml Vial IV PUSH Q12HR [facility] Sodium Chloride 1,000 mls @ 125 mls/hr 09/16/24 16:45 09/17/24 04:11 Normal Saline Iv IV CONT Not Given .Q8H ARCHANA Lorazepam 1 mg 09/16/24 21:02 Lorazepam Inj (*Crx) 2 Mg/Ml Vial IV PUSH Q2H PRN CIWA 8-15 Lorazepam 2 mg 09/16/24 21:02 Lorazepam Inj (*Crx) 2 Mg/Ml Vial IV PUSH Q2H PRN CIWA > 15 Morphine Sulfate 2 mg 09/16/24 16:44 09/17/24 06:18 Morphine Sulfate (*Crx) 2 Mg/Ml Inj IV PUSH 2 mg Q2H PRN Administration Pain Rated 7-10 Ondansetron HCl 4 mg 09/16/24 16:44 09/17/24 03:46 Ondansetron Inj 4 Mg/2 Ml Vial IV PUSH 4 mg Q4H PRN Administration Nausea Thiamine HCl 100 mg 09/17/24 09:00 Thiamine Hcl 200 Mg/2 Ml Vial IV PUSH QAM [facility] Radiology Results: ITS Impressions Abdomen/Pelvis CT 09/16/24 18:35 IMPRESSION: Mesenteric panniculitis. Mostly fluid-filled colon, as can be seen with diarrheal illness. Labs Labs: Laboratory Results - last 24 hr 09/16/24 09/16/24 09/17/24 16:02 19:58 00:27 WBC 16.8 H RBC 4.10 L Hgb 13.5 L 7.9 L D 9.9 L Hct 41.4 L 24.1 L 30.2 L MCV 101.0 H MCH 32.9 MCHC 32.6 RDW 13.2 Plt Count 234 MPV 10.3 Immature Gran % (Auto) 0.4 Neut % (Auto) 58.0 Lymph % (Auto) 31.5 [place] % (Auto) 7.7 Eos % (Auto) 1.6 Baso % (Auto) 0.8 Lymph # (Auto) 5.29 H [place] # (Auto) 1.3 H Eos # (Auto) 0.3 Baso # (Auto) 0.1 Abs Immat Gran (auto) 0.07 H Absolute Neuts (auto) 9.7 H Absolute Nucleated RBC 0.000 Nucleated RBC % 0.0 PT 12.9 INR 0.9 APTT 28.3 Sodium 138 Potassium 3.8 Chloride 100 Carbon Dioxide 25 Anion Gap 13 H BUN 13 Creatinine 0.89 Estim Creat Clear Calc 103 Estimated GFR > 60 Glucose 102 Calcium 9.3 Magnesium 2.1 Total Bilirubin 0.5 AST 29 ALT 20 Alkaline Phosphatase 88 Total Protein 8.0 Albumin 4.6 Blood Type O Positive Antibody Screen Negative Crossmatch See Detail 09/17/24 06:07 WBC 9.6 RBC 3.41 L Hgb 11.0 L Hct 32.8 L MCV 96.2 MCH 32.3 MCHC 33.5 RDW 15.2 H Plt Count 121 L MPV 9.9 Immature Gran % (Auto) Neut % (Auto) Lymph % (Auto) [place] % (Auto) Eos % (Auto) Baso % (Auto) Lymph # (Auto) [place] # (Auto) Eos # (Auto) Baso # (Auto) Abs Immat Gran (auto) Absolute Neuts (auto) Absolute Nucleated RBC Nucleated RBC % PT INR APTT Sodium 137 Potassium 3.9 Chloride 105 Carbon Dioxide 26 Anion Gap 6 BUN 11 Creatinine 0.73 Estim Creat Clear Calc 120 Estimated GFR > 60 Glucose 100 Calcium 7.5 L Magnesium 1.8 Total Bilirubin AST ALT Alkaline Phosphatase Total Protein Albumin Blood Type Antibody Screen Crossmatch
[2024-09-17] MEDS: THIAMINE HCL 200 MG/2 ML VIAL 100 MG IV PUSH (09:04)
[2024-09-17] MEDS: FAMOTIDINE 20 MG/2 ML VIAL IV PUSH (09:04)
[2024-09-17 10:20] LABS: Hematocrit 31.2 % (42.0-52.0); Hemoglobin 10.4 g/dL (14.0-18.0)
--- NOTE | 2024-09-17 11:40 | PC.NURSE ---
To GI Lab per [wheelchair ], IV [fluids stopped by GI general production laborer ]. Report given to [RICCARDO Ventura @ [phone] ]. Family at bedside and transferred with pt to GI lab
[2024-09-17] MEDS: LACTATED RINGERS 1,000 ML 150 ML IV CONT (12:03)
--- NOTE | 2024-09-17 12:19 | WPDANESEPPF ---
Anes - Initial Pre Proc Eval Procedure: Operation Date: 09/17/24 12:00 Proposed Procedures p Colonoscopy - Tod Renae MD Date/Time: 09/17/24 12:19 Surgeon: Tamir Burnham MD Pre Op Diagnosis: Rectal bleeding s/p colonoscopy Patient Data Age: 44 Gender: M Height: 1.8 m Weight: 89.5 kg Last Vital Signs Temp 36.2 C L 09/17/24 12:01 Pulse 77 09/17/24 12:01 Resp 18 09/17/24 12:01 BP 127/90 09/17/24 12:01 Pulse Ox 100 09/17/24 12:01 O2 Del Method Room Air 09/17/24 12:01 Allergies Allergy/AdvReac Type Severity Reaction Status Date / Time Penicillins Allergy Rash Verified 09/17/24 11:58 Home Medications ?Medication ?Instructions ?Recorded ?Confirmed ?Type famotidine 20 mg tablet (Acid 20 mg PO DAILY GERD 09/02/24 09/16/24 History Controller) Laboratory Tests 09/16/24 09/16/24 09/17/24 16:02 19:58 00:27 WBC 16.8 H K/mm3 (4.5-10.0) RBC 4.10 L M/mm3 (4.6-6.20) Hgb 13.5 L g/dL 7.9 L D g/dL 9.9 L g/dL (14.0-18.0) (14.0-18.0) (14.0-18.0) Hct 41.4 L % 24.1 L % 30.2 L % (42.0-52.0) (42.0-52.0) (42.0-52.0) MCV 101.0 H fl (80-100) MCH 32.9 pg (26-34) MCHC 32.6 g/dl (32-36) RDW 13.2 % (11.5-14.5) Plt Count 234 k/mm3 (150-375) MPV 10.3 fl (7.4-10.4) Immature Gran % (Auto) 0.4 % (0-0.5) Neut % (Auto) 58.0 % (45.5-73.1) Lymph % (Auto) 31.5 % (18.3-44.2) [place] % (Auto) 7.7 % (2.6-8.5) Eos % (Auto) 1.6 % (0-4.4) Baso % (Auto) 0.8 % (0.2-1.2) Lymph # (Auto) 5.29 H K/mm3 (0.9-3.2) [place] # (Auto) 1.3 H K/mm3 (0.1-0.6) Eos # (Auto) 0.3 K/mm3 (0-0.3) Baso # (Auto) 0.1 K/mm3 (0.0-0.1) Abs Immat Gran (auto) 0.07 H K/mm3 (0.00-0.031) Absolute Neuts (auto) 9.7 H K/mm3 (1.3-6.7) Absolute Nucleated RBC 0.000 K/mm3 (0.0-0.012) Nucleated RBC % 0.0 % (0.0-0.2) PT 12.9 Seconds (11.1-14.7) INR 0.9 APTT 28.3 Seconds (22.3-36.8) Sodium 138 mmol/L (137-145) Potassium 3.8 mmol/L (3.4-5.0) Chloride 100 mmol/L (98-107) Carbon Dioxide 25 mmol/L (22-30) Anion Gap 13 H mmol/L (4-12) BUN 13 mg/dL (9-20) Creatinine 0.89 mg/dL (0.7-1.3) Estim Creat Clear Calc 103 ml/min Estimated GFR > 60 (59 - ) Glucose 102 mg/dL (65-110) Calcium 9.3 mg/dL (8.4-10.2) Magnesium 2.1 mg/dL (1.6-2.3) Total Bilirubin 0.5 mg/dL (0.2-1.3) AST 29 U/L (17-59) ALT 20 U/L (6-50) Alkaline Phosphatase 88 U/L (38-126) Total Protein 8.0 g/dL (6.3-8.2) Albumin 4.6 g/dL (3.5-5.1) Blood Type O Positive Antibody Screen Negative Crossmatch See Detail 09/17/24 09/17/24 06:07 10:13 WBC 9.6 K/mm3 (4.5-10.0) RBC 3.41 L M/mm3 (4.6-6.20) Hgb 11.0 L g/dL 10.4 L g/dL (14.0-18.0) (14.0-18.0) Hct 32.8 L % 31.2 L % (42.0-52.0) (42.0-52.0) MCV 96.2 fl (80-100) MCH 32.3 pg (26-34) MCHC 33.5 g/dl (32-36) RDW 15.2 H % (11.5-14.5) Plt Count 121 L k/mm3 (150-375) MPV 9.9 fl (7.4-10.4) Immature Gran % (Auto) Neut % (Auto) Lymph % (Auto) [place] % (Auto) Eos % (Auto) Baso % (Auto) Lymph # (Auto) [place] # (Auto) Eos # (Auto) Baso # (Auto) Abs Immat Gran (auto) Absolute Neuts (auto) Absolute Nucleated RBC Nucleated RBC % PT INR APTT Sodium 137 mmol/L (137-145) Potassium 3.9 mmol/L (3.4-5.0) Chloride 105 mmol/L (98-107) Carbon Dioxide 26 mmol/L (22-30) Anion Gap 6 mmol/L (4-12) BUN 11 mg/dL (9-20) Creatinine 0.73 mg/dL (0.7-1.3) Estim Creat Clear Calc 120 ml/min Estimated GFR > 60 (59 - ) Glucose 100 mg/dL (65-110) Calcium 7.5 L mg/dL (8.4-10.2) Magnesium 1.8 mg/dL (1.6-2.3) Total Bilirubin AST ALT Alkaline Phosphatase Total Protein Albumin Blood Type Antibody Screen Crossmatch Patient hx anesthesia problems: none Family hx anesthesia problems: none Results Review: All pre-operative results and documents have been reviewed as part of the pre-operative evaluation. ON LICENSE OF [facility] Past Medical History Medical History (Updated 09/16/24 @ 20:59 by Kaykay Ackerman PA-C) Daily consumption of alcohol Nicotine dependence Obstructive sleep apnea mild and no recommendations for CPAP Gastroesophageal reflux disease Anxiety Rhinitis Surgical History Surgical History (Updated 09/16/24 @ 20:54 by Kaykay Ackerman PA-C) History of colonoscopy with polypectomy History of vasectomy History of tonsillectomy Family History Family History (Updated 09/16/24 @ 23:54 by Allison Fitzpatrick RN) Other Unknown family medical history Social History Social History (Updated 09/16/24 @ 20:55 by Kaykay Ackerman PA-C) Social History: Surrogate medical decision maker: Catina Rust, spouse ([phone]). Code status: Full code. Smoking packs per day: 1 Smoking cigarettes per day: 20.0 Years smoked: 25 Smoking pack-years: 25.00 Smoking status: Current every day smoker Tobacco type: cigarettes Alcohol intake: current Alcohol use details: 2-6 a night, 30 a weekend on average Substance use: current Substance use type: marijuana Other substance usage details: smokes marijuana in the evening daily Do You Feel Safe in your Home?: Yes Lack of Transportation: No Lack of Food: Never True Current Housing: I Have Housing Concerned About Future Housing: No Difficulty Paying Gas/Electric Bills: No Difficulty Paying for Meds: No Currently Unemployed: No Education: High School Diploma/GED Difficulty w/ Childcare or Family Care: No Living arrangements: with family Additional living arrangements comments: Lives with spouse and children in [place]. Occupation/Education: occupation Additional occupation/education comments: [employer]. Spiritual care concerns: No Anes - Eval Final PreProcedure Day of Procedure 09/17/24 12:19 Patient weight: overweight Heart: regular rate and rhythm Lungs: decreased breath sounds Airway: Mallampati scale class II Neurological: alert and oriented Last oral intake: >/= 8 hours ASA classification: III Emergent: no Anesthetic plan: proceed Anesthesia type and monitoring: general GIVS and standard monitoring Results Review: All pre-operative results and documents have been reviewed as part of the pre-operative evaluation. Informed Consent: The patient's anesthetic plan and its attendant risks and benefits were discussed with the patient/family/POA. Questions were solicited and answers provided to the satisfaction of the patient/family/POA.
--- NOTE | 2024-09-17 13:12 | WPDGIPROGNO ---
Progress Note: A&P Assessment and Plan (1) Post-polypectomy bleeding: Status: Acute Assessment and Plan: The patient had an ulcer with nonbleeding clot in the sigmoid region were 2 polyps were removed with cold snare. He is currently hemodynamically stable. Will keep him hospitalized for 24 more hours, start bland diet and send him home tomorrow. Time Spent With Patient Time with patient: less than 15 minutes Subjective Date/time seen: 09/17/24 13:12 Interval history: The patient stopped bleeding. He finished his prep. See colonoscopy report. Objective Data Vital Signs Vital Signs: Vital Signs - 24 hr 09/16/24 15:25 09/16/24 17:00 09/16/24 17:15 Temperature 98.8 F Pulse Rate 141 H 126 H 126 H Respiratory Rate 20 10 L 16 Blood Pressure 172/111 H 135/98 H Pulse Oximetry 100 100 100 Oxygen Delivery 09/16/24 17:30 09/16/24 17:30 09/16/24 17:31 Temperature 97.9 F Pulse Rate 109 H 122 H 137 H Respiratory Rate 14 17 16 Blood Pressure 94/62 L Pulse Oximetry 100 Oxygen Delivery 09/16/24 17:46 09/16/24 17:47 09/16/24 17:52 Temperature Pulse Rate 99 107 H 117 H Respiratory Rate 16 18 18 Blood Pressure 111/77 112/79 Pulse Oximetry 100 100 100 Oxygen Delivery 09/16/24 18:07 09/16/24 18:13 09/16/24 18:25 Temperature Pulse Rate 126 H 121 H Respiratory Rate 13 Blood Pressure 130/80 Pulse Oximetry 100 100 Oxygen Delivery 09/16/24 18:28 09/16/24 18:30 09/16/24 18:31 Temperature Pulse Rate 106 H 111 H 103 H Respiratory Rate 13 11 L 10 L Blood Pressure 128/76 116/85 Pulse Oximetry 100 100 100 Oxygen Delivery 09/16/24 18:48 09/16/24 19:06 09/16/24 19:15 Temperature Pulse Rate 108 H 106 H 114 H Respiratory Rate 10 L 21 H 17 Blood Pressure Pulse Oximetry 99 100 100 Oxygen Delivery 09/16/24 19:30 09/16/24 19:31 09/16/24 19:45 Temperature Pulse Rate 96 101 H 97 Respiratory Rate 11 L 9 L 16 Blood Pressure 100/71 Pulse Oximetry 100 99 100 Oxygen Delivery 09/16/24 19:46 02/03/25 20:00 09/16/24 20:01 Temperature Pulse Rate 102 H 108 H 104 H Respiratory Rate 11 L 19 20 Blood Pressure 122/75 123/78 Pulse Oximetry 100 100 100 Oxygen Delivery 09/16/24 20:19 09/16/24 20:45 09/16/24 21:05 Temperature Pulse Rate 98 103 H 90 Respiratory Rate 14 12 19 Blood Pressure Pulse Oximetry 99 100 100 Oxygen Delivery 09/16/24 21:10 09/16/24 21:11 09/16/24 21:15 Temperature 98.1 F Pulse Rate 93 100 98 Respiratory Rate 18 18 Blood Pressure 119/77 119/77 Pulse Oximetry 100 100 99 Oxygen Delivery 09/16/24 21:27 09/16/24 21:28 09/16/24 21:30 Temperature 98.7 F Pulse Rate 98 94 95 Respiratory Rate 18 10 L 13 Blood Pressure 125/75 125/75 126/114 H Pulse Oximetry 100 100 100 Oxygen Delivery 09/16/24 21:32 09/16/24 21:44 09/16/24 21:45 Temperature Pulse Rate 96 115 H 119 H Respiratory Rate 20 16 11 L Blood Pressure 84/72 L 106/84 Pulse Oximetry 100 100 100 Oxygen Delivery 09/16/24 21:46 09/16/24 22:00 09/16/24 23:25 Temperature 98.5 F Pulse Rate 105 H 97 92 Respiratory Rate 11 L 12 20 Blood Pressure 119/76 132/92 H Pulse Oximetry 100 100 98 Oxygen Delivery 09/16/24 23:31 09/16/24 23:56 09/17/24 00:00 Temperature 98.1 F Pulse Rate 96 93 Respiratory Rate 18 Blood Pressure 109/79 Pulse Oximetry 100 Oxygen Delivery Room Air 09/17/24 00:00 09/17/24 00:06 09/17/24 00:13 Temperature 98.1 F Pulse Rate 91 89 86 Respiratory Rate 18 Blood Pressure 114/88 Pulse Oximetry 100 Oxygen Delivery 09/17/24 01:13 09/17/24 01:48 09/17/24 02:00 Temperature 97.9 F 97.9 F Pulse Rate 91 86 80 Respiratory Rate 18 18 Blood Pressure 130/79 125/83 Pulse Oximetry 99 99 Oxygen Delivery 09/17/24 02:06 09/17/24 03:06 09/17/24 03:42 Temperature 97.8 F 98 F 98.2 F Pulse Rate 80 80 86 Respiratory Rate 18 16 18 Blood Pressure 126/88 117/78 116/81 Pulse Oximetry 99 100 100 Oxygen Delivery 09/17/24 04:00 09/17/24 04:00 09/17/24 06:00 Temperature Pulse Rate 78 80 Respiratory Rate Blood Pressure Pulse Oximetry Oxygen Delivery Room Air 09/17/24 07:40 09/17/24 08:00 09/17/24 08:00 Temperature 97.5 F L Pulse Rate 68 68 86 Respiratory Rate 18 18 Blood Pressure 110/74 Pulse Oximetry 100 100 Oxygen Delivery Room Air 09/17/24 08:31 09/17/24 10:00 09/17/24 11:20 Temperature 98.2 F Pulse Rate 80 80 Respiratory Rate 18 Blood Pressure 119/78 Pulse Oximetry 100 100 Oxygen Delivery Room Air 09/17/24 12:01 09/17/24 12:45 09/17/24 12:55 Temperature 97.1 F L Pulse Rate 77 77 72 Respiratory Rate 18 18 21 H Blood Pressure 127/90 102/68 102/70 Pulse Oximetry 100 98 98 Oxygen Delivery Room Air Room Air Room Air 09/17/24 13:05 Temperature Pulse Rate 727 H Respiratory Rate 17 Blood Pressure 115/76 Pulse Oximetry 98 Oxygen Delivery Room Air Intake/Output Intake/Output: Intake & Output 09/14/24 09/15/24 09/16/24 09/17/24 23:59 23:59 23:59 23:59 Intake Total 2450 800 Output Total 200 Balance 2450 600 Meds/Results Medications: Active Medications Generic Name Dose Route Start Last Admin Trade Name Freq PRN Reason Stop Dose Admin Acetaminophen 650 mg 09/16/24 16:44 Acetaminophen 325 Mg Tablet PO Q4H PRN Mild Pain (1-3) or Fever Lactated Ringer's 1,000 mls @ 150 mls/hr 09/17/24 12:00 09/17/24 13:09 Lr - Lactated Ringers Iv IV CONT Infused .[id number] ARCHANA Infusion Lorazepam 1 mg 09/16/24 21:02 Lorazepam Inj (*Crx) 2 Mg/Ml Vial IV PUSH Q2H PRN CIWA 8-15 Lorazepam 2 mg 09/16/24 21:02 Lorazepam Inj (*Crx) 2 Mg/Ml Vial IV PUSH Q2H PRN CIWA > 15 Thiamine HCl 100 mg 09/17/24 09:00 09/17/24 09:04 Thiamine Hcl 200 Mg/2 Ml Vial IV PUSH 100 mg QAM ARCHANA Administration Radiology Results: ITS Impressions Abdomen/Pelvis CT 09/16/24 18:35 IMPRESSION: Mesenteric panniculitis. Mostly fluid-filled colon, as can be seen with diarrheal illness. Labs Labs: Laboratory Results - last 24 hr 09/16/24 09/16/24 09/17/24 16:02 19:58 00:27 WBC 16.8 H RBC 4.10 L Hgb 13.5 L 7.9 L D 9.9 L Hct 41.4 L 24.1 L 30.2 L MCV 101.0 H MCH 32.9 MCHC 32.6 RDW 13.2 Plt Count 234 MPV 10.3 Immature Gran % (Auto) 0.4 Neut % (Auto) 58.0 Lymph % (Auto) 31.5 Dickenson % (Auto) 7.7 Eos % (Auto) 1.6 Baso % (Auto) 0.8 Lymph # (Auto) 5.29 H Dickenson # (Auto) 1.3 H Eos # (Auto) 0.3 Baso # (Auto) 0.1 Abs Immat Gran (auto) 0.07 H Absolute Neuts (auto) 9.7 H Absolute Nucleated RBC 0.000 Nucleated RBC % 0.0 PT 12.9 INR 0.9 APTT 28.3 Sodium 138 Potassium 3.8 Chloride 100 Carbon Dioxide 25 Anion Gap 13 H BUN 13 Creatinine 0.89 Estim Creat Clear Calc 103 Estimated GFR > 60 Glucose 102 Calcium 9.3 Magnesium 2.1 Total Bilirubin 0.5 AST 29 ALT 20 Alkaline Phosphatase 88 Total Protein 8.0 Albumin 4.6 Blood Type O Positive Antibody Screen Negative Crossmatch See Detail 09/17/24 09/17/24 06:07 10:13 WBC 9.6 RBC 3.41 L Hgb 11.0 L 10.4 L Hct 32.8 L 31.2 L MCV 96.2 MCH 32.3 MCHC 33.5 RDW 15.2 H Plt Count 121 L MPV 9.9 Immature Gran % (Auto) Neut % (Auto) Lymph % (Auto) Dickenson % (Auto) Eos % (Auto) Baso % (Auto) Lymph # (Auto) Dickenson # (Auto) Eos # (Auto) Baso # (Auto) Abs Immat Gran (auto) Absolute Neuts (auto) Absolute Nucleated RBC Nucleated RBC % PT INR APTT Sodium 137 Potassium 3.9 Chloride 105 Carbon Dioxide 26 Anion Gap 6 BUN 11 Creatinine 0.73 Estim Creat Clear Calc 120 Estimated GFR > 60 Glucose 100 Calcium 7.5 L Magnesium 1.8 Total Bilirubin AST ALT Alkaline Phosphatase Total Protein Albumin Blood Type Antibody Screen Crossmatch
--- NOTE | 2024-09-17 13:35 | PC.NURSE ---
Returned from GI Lab. Report received from [RICCARDO Brooks @ [id number] ].
[2024-09-17] MEDS: ACETAMINOPHEN 325 MG TABLET 650 MG PO (17:04)
--- NOTE | 2024-09-17 21:29 | PC.NURSE ---
This patient, Hal Rust, was transferred to [[id number] ] on 09/17/24 at 2130. Personal belongings sent with patient. Report given to [Tavia lizarraga ]. Appropriate documentation sent with patient.
--- NOTE | 2024-09-17 21:50 | PC.NURSE ---
2139 RECIEVED PT VIA BED FROM IMU . PT AND BELONGINGS AT BEDSIDE
[2024-09-18] VITALS: BP 112/77
[2024-09-18 04:00] VITALS: BP 100/61
[2024-09-18 05:05] VITALS: BP 100/61; PULSE 75; RESP 16; TEMP 36.2; O2SAT 99
--- NOTE | 2024-09-18 06:53 | WPDGIPROGNO ---
Progress Note: A&P Assessment and Plan (1) Post-polypectomy bleeding: Status: Acute Assessment and Plan: The patient experience of post polypectomy bleeding, colonoscopy yesterday showed a sigmoid ulcer with clot with no active bleeding. It was probably exacerbated by if appropriate the patient took after the procedure. Patient instructed not to take any NSAIDs for the next 2 weeks. He can be discharged home. His next colonoscopy should be in 10 years since the polyps were found to be hyperplastic. Time Spent With Patient Time with patient: less than 15 minutes Subjective Date/time seen: 09/18/24 06:53 Interval history: The patient did well during the night, no further GI bleeding. Hemodynamically stable. Objective Data Vital Signs Vital Signs: Vital Signs - 24 hr 09/17/24 07:40 09/17/24 08:00 09/17/24 08:00 Temperature 97.5 F L Pulse Rate 68 68 86 Respiratory Rate 18 18 Blood Pressure 110/74 Pulse Oximetry 100 100 Oxygen Delivery Room Air 09/17/24 08:31 09/17/24 10:00 09/17/24 11:20 Temperature 98.2 F Pulse Rate 80 80 Respiratory Rate 18 Blood Pressure 119/78 Pulse Oximetry 100 100 Oxygen Delivery Room Air 09/17/24 12:01 09/17/24 12:45 09/17/24 12:55 Temperature 97.1 F L Pulse Rate 77 77 72 Respiratory Rate 18 18 21 H Blood Pressure 127/90 102/68 102/70 Pulse Oximetry 100 98 98 Oxygen Delivery Room Air Room Air Room Air 09/17/24 13:05 09/17/24 14:00 09/17/24 15:57 Temperature 97.9 F Pulse Rate 727 H 93 84 Respiratory Rate 17 14 Blood Pressure 115/76 120/77 Pulse Oximetry 98 100 Oxygen Delivery Room Air 09/17/24 16:00 09/17/24 16:00 09/17/24 20:00 Temperature Pulse Rate 84 94 Respiratory Rate 14 Blood Pressure 120/77 Pulse Oximetry 100 Oxygen Delivery Room Air 09/17/24 20:00 09/17/24 20:24 09/17/24 21:49 Temperature 97.9 F 97.8 F Pulse Rate 94 81 65 Respiratory Rate 14 16 16 Blood Pressure 124/69 112/77 Pulse Oximetry 100 100 99 Oxygen Delivery Room Air 09/18/24 00:00 09/18/24 04:00 09/18/24 05:05 Temperature 97.1 F L Pulse Rate 75 Respiratory Rate 16 Blood Pressure 112/77 100/61 100/61 Pulse Oximetry 99 Oxygen Delivery Intake/Output Intake/Output: Intake & Output 09/15/24 09/16/24 09/17/24 09/18/24 23:59 23:59 23:59 23:59 Intake Total 2450 2580 Output Total 200 0 Balance 2450 2380 0 Meds/Results Medications: Active Medications Generic Name Dose Route Start Last Admin Trade Name Freq PRN Reason Stop Dose Admin Acetaminophen 650 mg 09/16/24 16:44 09/17/24 17:04 Acetaminophen 325 Mg Tablet PO 650 mg Q4H PRN Administration Mild Pain (1-3) or Fever Lorazepam 2 mg 09/16/24 21:02 Lorazepam Inj (*Crx) 2 Mg/Ml Vial IV PUSH Q2H PRN CIWA > 15 Thiamine HCl 100 mg 09/17/24 09:00 09/17/24 09:04 Thiamine Hcl 200 Mg/2 Ml Vial IV PUSH 100 mg QAM ARCHANA Administration Radiology Results: ITS Impressions Abdomen/Pelvis CT 09/16/24 18:35 IMPRESSION: Mesenteric panniculitis. Mostly fluid-filled colon, as can be seen with diarrheal illness. Labs Labs: Laboratory Results - last 24 hr 09/17/24 10:13 Hgb 10.4 L Hct 31.2 L
--- NOTE | 2024-09-18 08:27 | P.PNIM_ITS ---
Progress Note: A&P Assessment and Plan (1) Lower GI bleed: Code(s): K92.2 - Gastrointestinal hemorrhage, unspecified Status: Acute (2) Post-polypectomy bleeding: Status: Acute (3) Acute blood loss anemia: Code(s): D62 - Acute posthemorrhagic anemia Status: Acute (4) Gastroesophageal reflux disease: Code(s): K21.9 - Gastro-esophageal reflux disease without esophagitis Status: Acute (5) Nicotine dependence: Code(s): F17.200 - Nicotine dependence, unspecified, uncomplicated Status: Acute (6) Daily consumption of alcohol: Code(s): Z78.9 - Other specified health status Status: Acute Plan The patient presented to the emergency department for evaluation of bloody stool since this morning as detailed in HPI. Labs, imaging, EKG, and all reports were personally reviewed. Acute GI bleed Recent colonoscopy done several days ago in which a 15 mm pedunculated ascending colon polyp was removed via hot snare polypectomy and several systolic polyps removed via cold snare polypectomy. Patient has active GI bleeding, likely secondary to polypectomy Appreciate GI consultation colonoscopy: colonoscopy yesterday showed a sigmoid ulcer with clot with no active bleeding. 2/4 Acute blood loss anemia hemoglobin has dropped 5.6 g since presentation baseline 13.5 September 16, 2024 Received transfusion in the ED 3 units packed red blood cells Transfuse p.r.n. Follow-up hemoglobin and hematocrit Hemoglobin 12.9 today Alcohol dependence The patient drinks alcohol daily but denies ever having signs or symptoms of alcohol withdrawal Monitor sign of alcohol withdrawal and management per [facility] protocol. No alcohol withdrawal Subjective Date/time seen: 09/18/24 08:27 Interval history: No new issue events over the night, hemoglobin 12.9, no active bleeding Exam Narrative: GENERAL: Pleasant, in no acute distress. Well-nourished. - EYES: EOMI. Anicteric. - HENT: Moist mucous membranes. Pale - LUNGS: Clear to auscultation bilateral ly, no wheezing, rhonchi, or rales. - CARDIOVASCULAR: Regular rate and rhyth m. No murmur. No JVD. - ABDOMEN: Soft, non-tender and non-dist ended. No palpable masses. - EXTREMITIES: No edema. Peripheral puls es 2+. Non-tender. - NEUROLOGIC: No focal neurological defi cits. CN II-XII grossly intact. - PSYCHIATRIC: Awake, Alert and oriented x 3. Appropriate mood and affect. - SKIN: No rashes or lesions. Warm. - LYMPH: No cervical lymphadenopathy. Objective Data Vital Signs Vital Signs: Vital Signs - 24 hr 09/17/24 08:31 09/17/24 10:00 09/17/24 11:20 Temperature 98.2 F Pulse Rate 80 80 Respiratory Rate 18 Blood Pressure 119/78 Pulse Oximetry 100 100 Oxygen Delivery Room Air 09/17/24 12:01 09/17/24 12:45 09/17/24 12:55 Temperature 97.1 F L Pulse Rate 77 77 72 Respiratory Rate 18 18 21 H Blood Pressure 127/90 102/68 102/70 Pulse Oximetry 100 98 98 Oxygen Delivery Room Air Room Air Room Air 09/17/24 13:05 09/17/24 14:00 09/17/24 15:57 Temperature 97.9 F Pulse Rate 727 H 93 84 Respiratory Rate 17 14 Blood Pressure 115/76 120/77 Pulse Oximetry 98 100 Oxygen Delivery Room Air 09/17/24 16:00 09/17/24 16:00 09/17/24 20:00 Temperature Pulse Rate 84 94 Respiratory Rate 14 Blood Pressure 120/77 Pulse Oximetry 100 Oxygen Delivery Room Air 09/17/24 20:00 09/17/24 20:24 09/17/24 21:49 Temperature 97.9 F 97.8 F Pulse Rate 94 81 65 Respiratory Rate 14 16 16 Blood Pressure 124/69 112/77 Pulse Oximetry 100 100 99 Oxygen Delivery Room Air 09/18/24 00:00 09/18/24 04:00 09/18/24 05:05 Temperature 97.1 F L Pulse Rate 75 Respiratory Rate 16 Blood Pressure 112/77 100/61 100/61 Pulse Oximetry 99 Oxygen Delivery Intake/Output Intake/Output: Intake & Output 09/15/24 09/16/24 09/17/24 09/18/24 23:59 23:59 23:59 23:59 Intake Total 2450 2580 Output Total 200 0 Balance 2450 2380 0 Meds/Results Medications: Active Medications Generic Name Dose Route Start Last Admin Trade Name Freq PRN Reason Stop Dose Admin Acetaminophen 650 mg 09/16/24 16:44 09/17/24 17:04 Acetaminophen 325 Mg Tablet PO 650 mg Q4H PRN Administration Mild Pain (1-3) or Fever Lorazepam 2 mg 09/16/24 21:02 Lorazepam Inj (*Crx) 2 Mg/Ml Vial IV PUSH Q2H PRN CIWA > 15 Thiamine HCl 100 mg 09/17/24 09:00 09/17/24 09:04 Thiamine Hcl 200 Mg/2 Ml Vial IV PUSH 100 mg QAM ARCHANA Administration Radiology Results: ITS Impressions Abdomen/Pelvis CT 09/16/24 18:35 IMPRESSION: Mesenteric panniculitis. Mostly fluid-filled colon, as can be seen with diarrheal illness. Labs Labs: Laboratory Results - last 24 hr 09/17/24 10:13 Hgb 10.4 L Hct 31.2 L
--- NOTE | 2024-09-18 08:30 | P.DS_ITS ---
DS: Admitting Diagnosis Discharge Date 09/18/24 Admitting Diagnosis (1) Lower GI bleed: Code(s): K92.2 - Gastrointestinal hemorrhage, unspecified Status: Acute (2) Post-polypectomy bleeding: Status: Acute (3) Acute blood loss anemia: Code(s): D62 - Acute posthemorrhagic anemia Status: Acute (4) Gastroesophageal reflux disease: Code(s): K21.9 - Gastro-esophageal reflux disease without esophagitis Status: Acute (5) Nicotine dependence: Code(s): F17.200 - Nicotine dependence, unspecified, uncomplicated Status: Acute (6) Daily consumption of alcohol: Code(s): Z78.9 - Other specified health status Status: Acute DS: Discharge Diagnosis Discharge Diagnosis (1) Lower GI bleed: Code(s): K92.2 - Gastrointestinal hemorrhage, unspecified Status: Acute (2) Post-polypectomy bleeding: Status: Acute (3) Acute blood loss anemia: Code(s): D62 - Acute posthemorrhagic anemia Status: Acute (4) Gastroesophageal reflux disease: Code(s): K21.9 - Gastro-esophageal reflux disease without esophagitis Status: Acute (5) Nicotine dependence: Code(s): F17.200 - Nicotine dependence, unspecified, uncomplicated Status: Acute (6) Daily consumption of alcohol: Code(s): Z78.9 - Other specified health status Status: Acute DS: Summary Hospital Course Hospital Course: Per H&P, This is a very pleasant 44-year-old male who presented to the emergency department for evaluation of bloody stools. The patient provides the following history. He had a colonoscopy on 09/13/2024 for evaluation of nearly daily episodes of painless rectal bleeding for the last several months and was found to have internal hemorrhoids and colon polyps. Several sessile polyps were seen in the distal rectosigmoid and sigmoid colon status post cold snare polypectomy. A 15 mm pedunculated polyp was seen in the ascending colon, status post hot snare polypectomy and placement one Resolution clip to prevent bleeding. He has felt okay since that time. This morning however he developed abdominal cramping and reports having multiple bloody stools. The stools are described as bright red blood occasionally admixed with maroon clots. He is feeling weak, lightheaded, and dizzy. He denies syncope, fever, chest pain, shortness of breath, and vomiting. In the ED: Vital signs on arrival include a temperature of 98.8?, blood pressure 172/111, pulse 141, respiratory rate 20, SpO2 100% on room air. Labs are significant for WBC count of 16.8, hemoglobin 13.5, hematocrit 41.4, INR 0.9, and unremarkable chemistries. 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 He continues to have innumerable bouts of bloody stools and he had a vagal episode this evening in which he became hypotensive into the 90 systolic and tachycardic into the 140s. He was given 1000 mg tranexamic acid and 3 units packed red blood cells were ordered as his hemoglobin dropped 5.6 g. He is being admitted to the IMU in this setting for close monitoring. The following med issues have been addressed during hospitalization Acute GI bleed Recent colonoscopy done several days ago in which a 15 mm pedunculated ascending colon polyp was removed via hot snare polypectomy and several systolic polyps removed via cold snare polypectomy. Patient has active GI bleeding, likely secondary to polypectomy Appreciate GI consultation colonoscopy: colonoscopy yesterday showed a sigmoid ulcer with clot with no active bleeding. 2/4 no active bleeding today Acute blood loss anemia hemoglobin has dropped 5.6 g since presentation baseline 13.5 September 16, 2024 Received transfusion in the ED 3 units packed red blood cells Transfuse p.r.n. Follow-up hemoglobin and hematocrit Hemoglobin 12.9 today Alcohol dependence The patient drinks alcohol daily but denies ever having signs or symptoms of alcohol withdrawal Monitor sign of alcohol withdrawal and management per [facility] protocol. No alcohol withdrawal Time Spent with Patient Time attestation: Total time spent providing and/or coordinating discharge services: Exam Narrative: GENERAL: Pleasant, in no acute distress. Well-nourished. - EYES: EOMI. Anicteric. - HENT: Moist mucous membranes. Pale - LUNGS: Clear to auscultation bilateral ly, no wheezing, rhonchi, or rales. - CARDIOVASCULAR: Regular rate and rhyth m. No murmur. No JVD. - ABDOMEN: Soft, non-tender and non-dist ended. No palpable masses. - EXTREMITIES: No edema. Peripheral puls es 2+. Non-tender. - NEUROLOGIC: No focal neurological defi cits. CN II-XII grossly intact. - PSYCHIATRIC: Awake, Alert and oriented x 3. Appropriate mood and affect. - SKIN: No rashes or lesions. Warm. - LYMPH: No cervical lymphadenopathy. DS: Data Data Completed and Pending Labs on day of discharge: Labs from last 24 hours 09/17/24 10:13 Hgb 10.4 L Hct 31.2 L Discharge Plan Discharge Attending physician on discharge: Laurence Quispe Discharging Clinician: Laurence Quispe Anticipated Discharge Date/Time: 09/18/24 10:30 Patient Disposition: Home, Self-Care Activity: as tolerated Diet: as tolerated Discharge Instructions: Avoid NSAIDS (ibuprofen, naproxen, aleve) Patient Instructions: Antibiotic Form, Peptic Ulcer (DC), Gastrointestinal Bleeding (DC), Rectal Bleeding (DC), Alcohol Dependence (DC) Patient Language: Citizen Of [place] Stand Alone Forms: General Discharge Information Follow-up/Referrals: Horacio,So Jones, CEREAL CHEMIST [Primary Care Provider] - (Patient needs to see primary care doctor in 1 week) Discharge Medications: Continued famotidine [Acid Controller] 20 mg tablet 20 mg PO DAILY Date of admission: 09/16/24 16:45 Primary Care Provider: Horacio,So Jones Admitting Provider: Yon Burnham Attending physician on admission: Yon Burnham Condition: Stable
[2024-09-18 09:26] LABS: Hematocrit 39.8 % (42.0-52.0); Hemoglobin 12.9 g/dL (14.0-18.0); Mean Corpuscular HGB Conc 32.4 g/dl (32-36); Mean Corpuscular Hemoglobin 31.9 pg (26-34); Mean Corpuscular Volume 98.5 fl (80-100); Mean Platelet Volume 10.1 fl (7.4-10.4); Platelet Count Result 160 k/mm3 (150-375); Red Blood Count 4.04 M/mm3 (4.6-6.20); Red Cell Distribution Width 15.5 % (11.5-14.5); White Blood Count 10.2 K/mm3 (4.5-10.0)
[2024-09-18] MEDS: THIAMINE HCL 200 MG/2 ML VIAL 100 MG IV PUSH (09:26)
== END 2024-09-18 10:23 | disposition home or self-care (01) ==
LOC: ANHED 16:56 → ANHIMU 09-17 06:22 → ANH2MED 09-18 08:31 → ANH3MEDSUR 09-19 07:22 → ANHIMU 09-19 07:22
PROVIDERS: Internal Medicine Gastroenterology; Physician Assistant; Admitting Provider Internal Medicine; Emergency Provider Emergency Medicine; PCP Nurse Practitioner Family; Visit Provider Hospitalist
PROC: 0DJD8ZZ Inspection of Lower Intestinal Tract, Via Natural or Artificial Opening Endoscopic (ICD-10-PCS; CPT 45378; principal; 2024-09-17 12:00)
DX: K91.840 Postprocedural hemorrhage of a digestive system organ or structure following a digestive system procedure (principal); Y84.8 Other medical procedures as the cause of abnormal reaction of the patient, or of later complication, without mention of misadventure at the time of the procedure; K92.1 Melena; K63.3 Ulcer of intestine; D62 Acute posthemorrhagic anemia; Z86.0100 Personal history of colon polyps, unspecified; K21.9 Gastro-esophageal reflux disease without esophagitis; F10.20 Alcohol dependence, uncomplicated; F17.210 Nicotine dependence, cigarettes, uncomplicated; J31.0 Chronic rhinitis; G47.33 Obstructive sleep apnea (adult) (pediatric); F41.9 Anxiety disorder, unspecified; Z86.0102 Personal history of hyperplastic colon polyps
CPT/HCPCS: 45378; 36415; 36430; 74177; 80048; 80053; 83735; 85014; 85018; 85025; 85027; 85610; 85730; 86850; 86900; 86901; 86923; 93005; 96361; 96365; 96372; 96375; 96376; 99285; A9270; G0378; J0171; J0500; J2003; J2270; J2405; J2704; J3411; J7030; J7040; J7120; P9016; Q9967